=== PATIENT | male | born 1985 | race Caucasian/White ===

== ENCOUNTER 2023-10-07 02:14 | Inpatient (IN) | payer MEDICAID, SELFPAY ==
[2023-10-07] VITALS (13 sets, daily range): BP systolic 122–162; BP diastolic 91–112; PULSE 88–117; RESP 16–96; TEMP 36.3–37.7; O2SAT 95–971; BMI 27.9
--- NOTE | 2023-10-07 02:25 | XR_ITS ---
Examination: Abdomen sonogram, Limited Date and time of exam: October 07, 2023 0256 hrs. Indications: Epigastric pain nausea vomiting onset today Technique: Real-time mccauley scale transabdominal sonographic images of the upper abdomen obtained. Findings: Normal gallbladder Normal common bile duct 0.3 cm Pancreas obscured by bowel gas Liver 16.3 fatty infiltration no focal liver lesions Normal hepatopedal portal venous flow Patent IVC Impression: Normal gallbladder Mild hepatomegaly no focal liver lesions
--- NOTE | 2023-10-07 02:25 | EDRME_ITS ---
Rapid Medical Screening Exam [facility] Arrival date/time: 10/07/23 02:14 37M with history of previous alcohol abuse presents to ED with 1 day of gen ab pain, N/V, and non-bloody diarrhea. Chief Complaint: Nausea/Vomiting/Diarrhea Vital signs: Vital Signs Temperature 98.2 F 10/07/23 02:24 Pulse Rate 113 H 10/07/23 02:24 Respiratory Rate 18 10/07/23 02:24 Blood Pressure 161/91 H 10/07/23 02:24 Pulse Oximetry (%) 98 10/07/23 02:24 Oxygen Delivery Method Room Air 10/07/23 02:24
--- NOTE | 2023-10-07 02:25 | XR_ITS ---
Examination: CT abdomen with intravenous contrast CT pelvis with intravenous contrast 2-D coronal reconstructions 2-D sagittal reconstructions Date and time of exam:October 07, 2023 0421 hours Comparison July 28, 2022 INDICATIONS: Epigastric pain nausea vomiting beginning today. CTDI: vol (mGy) 8.16 DLP: (mGycm) 470 Technique: Multiple axial sections of the abdomen and pelvis have been obtained. 64 slice high-resolution scanner used. 3 mm axial sections have been obtained, post intravenous injection 60 cc [id number] 2-D sagittal, coronal reconstructions obtained. Low dose protocols were performed. One or more of the following dose reduction techniques were used; automated exposure control, adjustment of the mA and/or KV according to patient size, use of iterative reconstruction technique. Findings: Diffuse fatty infiltration throughout the liver Spleen is not enlarged Edema surrounding the pancreas No definite gallstones Moderate bilateral renal parenchymal scar formation Aorta normal size No bowel obstruction Normal appendix No diverticulitis Mild wall thickening urinary bladder Intact osseous structures IMPRESSION: Acute pancreatitis, no pseudocyst
[2023-10-07 02:45] LABS: Lactate (Lactic Acid) 2.1 mMol/L (0.4-2.0)
[2023-10-07 02:53] LABS: Basophils % (Auto) 0 % (0-2.5); Eosinophils # (Auto) 0.1 Thou/mm3 (0.0-0.5); Eosinophils % (Auto) 0 % (0-10); Hematocrit 46.1 % (41.0-53.0); Hemoglobin 16.1 g/dL (13.5-16.0); Immature Granulocytes % (Auto) 0 % (0-0); Immature Granulocytes Auto 0.05 Thou/mm3 (0.00-0.00); Lymphocytes # (Auto) 1.1 Thou/mm3 (1.0-4.8); Lymphocytes % (Auto) 7 % (10-50); Mean Corpuscular HGB Conc 34.9 g/dl (31.0-37.0); Mean Corpuscular Hemoglobin 30.1 pg (25.0-35.0); Mean Corpuscular Volume 86 fL (80-100); Monocytes % (Auto) 6 % (0-12); Neutrophils # (Auto) 14.2 Thou/mm3 (1.8-7.7); Neutrophils % (Auto) 86 % (37-80); Nucleated Red Blood Cell % 0 /100 WBC (0); Platelet Count 228 Thou/mm3 (140-440); RDW Standard Deviation 46.5 fL (35.1-43.9); Red Blood Count 5.34 Miln/mm3 (4.50-5.90); White Blood Count 16.4 Thou/mm3 (3.8-10.6)
[2023-10-07 03:04] LABS: Collection Type, Urine Clean Catch; RBC,Urine 0 /hpf (0-3); Squamous Epithelial Cell,Urine 0 /hpf (0-5); WBC,Urine 0 /hpf (0-5)
[2023-10-07 03:05] LABS: Alanine Aminotransferase 325 U/L (10-49); Albumin, Serum 5.1 gm/dL (3.5-5.0); Albumin/Globulin Ratio 1.5 (1.2-2.2); Alcohol, Blood Medical < 3.0 mg/dL (0-10.0); Alkaline Phosphatase 90 U/L (46-116); Anion Gap 9 (7-16); Aspartate Amino Transferase 201 U/L (0-34); BUN/Creatinine Ratio 17 Ratio (12-20); Bilirubin,Total 2.1 mg/dL (0.3-1.2); Blood Urea Nitrogen 15 mg/dL (9-23); Calcium 10.1 mg/dL (8.3-10.6); Calcium (Corrected) 10.1 mg/dL (8.5-10.1); Carbon Dioxide 30.2 mMol/L (20.0-31.0); Chloride 97 mMol/L (98-107); Creatinine (Component) 0.9 mg/dL (0.6-1.3); Estimated Creatinine Clearance 124.6 mL/min (>60); Globulin 3.3 gm/dL (2.3-3.5); Glucose 141 mg/dL (74-106); Lipase 671 U/L (12-53); Osmolality,Calculated 274 (275-295); Potassium 3.4 mMol/L (3.4-5.1); Sodium 136 mMol/L (136-145); Total Protein 8.4 gm/dL (5.7-8.2); eGFR > 60 See Note
[2023-10-07 03:26] LABS: Bilirubin,Urine Negative (Negative); Blood,Urine Negative (Negative); Clarity,Urine Clear (Clear/Hazy); Glucose, Urine Trace (Negative); Ketones,Urine 2+ (Negative); Leukocyte Esterase,Urine Negative (Negative); Nitrite,Urine Negative (Negative); PH,Urine 6.5 (5.0-7.0); Protein,Urine 2+ (Neg - Trace); Urobilinogen,Urine Negative mg/dL (0.0-1.0)
[2023-10-07 03:27] LABS: Color,Urine Yellow (Lt Yel-Yel)
[2023-10-07 03:32] LABS: Amphetamine/Methamp Scrn,U Negative (Negative); Barbiturate Screen,Urine Negative (Negative); Benzodiazepines Screen,Urine Negative (Negative); Benzoylecgonine Screen, Ur Negative (Negative); Fentanyl Screen,Urine Negative (Negative); Opiate Screen,Urine Negative (Negative); THC Screen,Urine Negative (Negative)
[2023-10-07] MEDS: MORPHINE SULF INJ 4 MG/ML VIAL IVP (03:52)
[2023-10-07] MEDS: RINGERS LACTATED 1000 ML 1,000 ML 999 ML IV (03:53)
--- NOTE | 2023-10-07 04:01 | PRELIM_ITS ---
Gallbladder ultrasound with Limited Doppler. October 07, 2023 0253 hours Clinical history: Right upper quadrant pain, nausea, vomiting.No prior study is available for comparison. Findings:The visualized l iver measures 16.3 cm in length and is heterogeneous in echotexture. No intrahepatic biliary duct dil atation. The main portal vein is patent and demonstrates hepatopetal flow. No gallbladder calculus, w all thickening or pericholecystic fluid is identified. The common duct is normal in caliber at 3 mm. The pancreas is obscured by bowel gas. The inferior vena cava is unremarkable to the extent visualize d.Impression:No evidence of cholelithiasis, wall thickening, pericholecystic fluid or biliary dilatat ion. Heterogeneous echotexture of the liver, suggestive of liver parenchymal disease. Recommend clini pratima correlation. Report Electronically Signed By: SE SAEZ 10/07/2023 3:59:30 AM [EST]
--- NOTE | 2023-10-07 04:59 | EDNOTE_ITS ---
Nausea/Vomit./Diarrhea-RME/HPI General Chief complaint: Nausea/Vomiting/Diarrhea Stated complaint: N/V/D Time Seen by Provider: 10/07/23 04:58 Arrival date/time: 10/07/23 02:14 RME / HPI RME / HPI Narrative: 10/07/23 02:14 37M with history of previous alcohol abuse presents to ED with 1 day of gen ab pain, N/V, and non-bloody diarrhea. ------ Dr. Reyna?s Main ED Evaluation: 37yo male with a history of alcohol abuse presents to the ED for a chief complaint of epigastric pain x 2 days. Patient states he last drank beer 3-4 days ago. He states he developed sudden abdominal pain 2 days ago, reporting it's been progressively getting worse since. He states the pain worsens when he lays flat. He reports associated N/V/D, decreased PO intake, and dysuria. He denies any fever, chills or any other associated symptoms. No known allergies. Patient reports experiencing similar symptoms 2 years ago. Related Data Previous Rx's ?Medication ?Instructions ?Recorded esomeprazole magnesium 20 mg 20 mg PO QDAY #20 caps 02/22/19 capsule,delayed release (Nexium) ondansetron HCl 4 mg tablet 4 mg PO QID PRN nausea and 02/22/19 (Zofran) vomiting #14 tabs ibuprofen 800 mg tablet 800 mg PO Q6H PRN pain #30 tabs 03/11/19 esomeprazole magnesium 20 mg 20 mg PO QDAY #30 caps 07/28/22 capsule,delayed release (Nexium) Allergies Allergy/AdvReac Type Severity Reaction Status Date / Time No Known Allergies Allergy Verified 03/11/19 18:57 Review of Systems Review of Systems Systems Reviewed: All systems reviewed, normal except as documented Narrative Review of Systems: GEN: No fever, no chills, no weight loss, + decreased PO intake EYES: No discharge, no visual changes, no pain HEENT: No ear pain, no congestion, no sore throat PULM: No shortness of breath, no cough, no congestion CV: No chest pain, no dyspnea on exertion, no palpitations GI: + nausea, + vomiting, + diarrhea, + pain, no constipation : No frequency, no urgency and + dysuria MUSC/SKEL No joint pain, no back pain SKIN: No rash PSYCH: No hallucinations, no depression HEME/LYMPH: No easy bleeding or bruising tendencies NEURO: No weakness, no headache Past Medical History Past Medical History CARDIAC: Negative Cardiac Disorders or Congestive Heart Failure RESPIRATORY: Negative Chronic Obstructive Pulmonary Disease (COPD) or Asthma GENITOURINARY: Negative Renal Disease ENDOCRINE: Negative Diabetes Mellitus Type 1 or Diabetes Mellitus Type 2 HEMATOLOGIC: Negative Sickle Cell Disease Family History FAMILY HISTORY: Positive Family Cardiac Disorders; Negative Family Neurologic Problems Social History SMOKING STATUS: Never smoker SECOND HAND EXPOSURE: No SUBSTANCE USE: does not use ED Exam Narrative Physical exam: GENERAL APPEARANCE: Well hydrated, well nourished, in no acute distress. VITALS: All vitals were reviewed and the pulse ox is 97% on room air which is normal according to my interpretation. HEENT: Normocephalic, atraumatic, EOMI, EACs are patent. There is no bulge or retraction. Throat without erythema or exudate. Moist oromucosa. No jaundice NECK: Supple, no JVD or bruits. CARDIOVASCULAR: Heart regular without S3-S4 or murmur. No rubs or gallops. LUNGS/CHEST: Clear to auscultation bilaterally. No rales, rhonchi, or wheezing. Normal inspection. ABDOMEN: Tender to palpation at the epigastric area with minimal tenderness to palpation at the RUQ. No pulsatile masses. No rebound, rigidity, or guarding. No incarcerated hernia. EXTREMITIES: No edema, clubbing, or cyanosis. Intact CSM. Normal inspection and palpation. SKIN: Warm and dry without rashes. Normal inspection and palpation. MUSCULOSKELETAL: No gross deformity, full ROM all extremities. Normal inspection and palpation. NEURO: Alert and oriented x3. Cranial nerves II through XII grossly intact. There are no other motor or sensory deficits noted. PSYCHIATRIC: Normal mood and affect. No psychosis. Course Quality Measures none Orders Category Date Time Status CT Screening NOW Care 10/07/23 02:25 Active Insert IV NOW Care 10/07/23 03:14 Active NPO NOW Care 10/07/23 03:14 Active Diet NPO (NOW) Diet 10/07/23 03:[address] abdomen pelvis w con Stat Exams 10/07/23 02:25 Taken US gall bladder Stat Exams 10/07/23 02:25 Taken Alcohol, Blood Medical Stat Lab 10/07/23 02:40 Completed CBC Stat Lab 10/07/23 02:40 Completed CMP [Comprehensive Metabolic Panel] Stat Lab 10/07/23 02:40 Completed Drug Screen,Urine Stat Lab 10/07/23 02:45 Completed Lactate (Lactic Acid) Stat Lab 10/07/23 02:40 Results Lipase Stat Lab 10/07/23 02:40 Completed Triglycerides Stat Lab 10/07/23 02:40 Completed UA [Urinalysis] Stat Lab 10/07/23 02:45 Completed Morphine Inj* [Morphine Sulf Inj] Med 10/07/23 03:14 Discontinued 4 mg IVP X1 ONE Ondansetron Inj [Zofran Inj] Med 10/07/23 03:14 Discontinued 4 mg IV X1 ONE Ringers Lactated 1000 ml [Lactated Ringers] 1,000 ml Med 10/07/23 03:14 Discontinued IV 999 mls/hr Vital Signs Vital signs: Vital Signs Temperature 98.2 F 10/07/23 02:24 Pulse Rate 113 H 10/07/23 02:24 Respiratory Rate 18 10/07/23 02:24 Blood Pressure 161/91 H 10/07/23 02:24 Pulse Oximetry (%) 98 10/07/23 02:24 Oxygen Delivery Method Room Air 10/07/23 02:24 Nausea/Vomiting/Diarrhea MDM Narrative MDM Narrative:: Scribe Attestation: 10/07/23 - Kateryna Blum am scribing for and in the presence of Dr. Reyna WBC count is 16,000. CMP showing elevated liver enzymes. But has been elevated before 2. Lipase level is 671. But he is quite tender in the epigastrium. Lactic acid of 2.1. UA is dry. Toxicology lab is negative. Alcohol level is negative. CT abdomen and pelvic as well as ultrasound of the gallbladder shows evidence of pancreatitis with no cholelithiasis and common bile duct is normal at 3 mm. No free fluid and no free air. Appendix is within normal limit. On exam the patient is quite tender to palpate over the epigastrium. Especially on supine. 5:15 AM, I spoke to and discussed with Dr. Van, the surgeon on-call. He said there is nothing much for him to do. And we do not need any consult from him. He Said. He Thinks That the Main Treatment Required IV Fluid and IV Painkiller. 5:30 AM, I spoke to and discussed with Dr. salas, the hospitalist on-call. He is evaluating the patient for admission. Patient data External records reviewed:: [facility] previous records Clinical information provided by:: patient Social determinants that could affect healthcare access:: none Patient has the following chronic illnesses:: none How is presenting disease/condition affected by chronic disease/condition?: no chronic disease Evaluation data The following diagnostics were reviewed and interpreted by me:: lab results and radiology exam(s) Lab and/or radiology exams considered but not ordered:: none Interpretation Summary: Teler[facility] Preliminary Report Draft Patient: MERLE LEO. Record#: [id number] Birthdate: 1985 Age/Sex: 37 / M Location: [facility] Attending Dr: Ordering Physician: Date of Service: Procedure(s): Accession Number(s): cc: ~ Gallbladder ultrasound with Limited Doppler. October 07, 2023 0253 hours Clinical history: Right upper quadrant pain, nausea, vomiting. No prior study is available for comparison. Findings: The visualized liver measures 16.3 cm in length and is heterogeneous in echotexture. No intrahepatic biliary duct dilatation. The main portal vein is patent and demonstrates hepatopetal flow. No gallbladder calculus, wall thickening or pericholecystic fluid is identified. The common duct is normal in caliber at 3 mm. The pancreas is obscured by bowel gas. The inferior vena cava is unremarkable to the extent visualized. Impression: No evidence of cholelithiasis, wall thickening, pericholecystic fluid or biliary dilatation. Heterogeneous echotexture of the liver, suggestive of liver parenchymal disease. Recommend clinical correlation. Report Electronically Signed By: SE SAEZ 10/07/2023 3:59:30 AM [EST] Telerad Preliminary Report Draft Patient: MERLE LEO. Record#: [id number] Birthdate: 1985 Age/Sex: 37 / M Location: [facility] Attending Dr: Ordering Physician: Date of Service: Procedure(s): Accession Number(s): cc: ~ CT scan of the abdomen and pelvis with intravenous contrast (axial sections with sagittal and coronal reformats) October 07, 2023 at 0403 hours Clinical History: Generalized abdominal pain, nausea and vomiting, diarrhea. Comparison: Correlated with the prior ultrasound study performed earlier today at 0253 hours. Findings: The lung bases are clear. The gallbladder, spleen, kidneys and adrenals are unremarkable. Peripancreatic fat stranding. No pancreatic duct dilation. No collections. Liver steatosis. No evidence of bowel obstruction. The appendix is within normal limits. There is no mesenteric or retroperitoneal adenopathy. The urinary bladder is unremarkable. There is no free air. Small amount of free fluid in the peritoneal cavity. The osseous structures are unremarkable. Impression: Acute pancreatitis. Liver steatosis. Report Electronically Signed By: 10/07/2023 4:58:16 AM [EST] Medications / Prescriptions Medications / Prescriptions considered but not ordered:: none Medication administrations:: Medication Administration History Discontinued Medications Lactated Ringer's (Lactated Ringers) 1,000 mls @ 999 mls/hr IV .Q1H1M ONE Stop: 10/07/23 04:14 Last Infusion: 10/07/23 04:45 Dose: Infused Documented By: Admin: 10/07/23 03:53 Dose: 999 mls/hr Documented By: GABRIEL Morphine Sulfate (Morphine Sulf Inj 4 Mg/Ml Vial) 4 mg IVP X1 ONE Stop: 10/07/23 03:15 Last Admin: 10/07/23 03:52 Dose: 4 mg Documented By: GABRIEL Ondansetron HCl (Ondansetron Inj 2 Mg/Ml Vial 2 Ml) 4 mg IV X1 ONE; Protocol Stop: 10/07/23 03:15 Last Admin: 10/07/23 03:52 Dose: 4 mg Documented By: GABRIEL As above Consultations Consultation(s) initiated? (list below): Yes Diagnosis Nausea Differential Diagnosis: gastroenteritis and other (Pancreatitis. Gastritis cholelithiasis) Most likely diagnosis given after review of the tests above:: Acute pancreatitis Admission Indicated Admission indicated?: indicated Admission Request Was there a request for admission?: Yes Admission Attestation Admission request attestation: See [facility] Disposition Plan Disposition Plan: Admit Discharge Plan Plan Patient Disposition: Admit Acute Care w/in Hospital Disposition Comment: Stable for admit Prescriptions/Referrals Prescriptions/Med Rec: No Action esomeprazole magnesium [Nexium] 20 mg capsule,delayed release(DR/EC) 20 mg PO QDAY Qty: 20 0RF ondansetron HCl [Zofran] 4 mg tablet 4 mg PO QID PRN (Reason: nausea and vomiting) Qty: 14 0RF ibuprofen 800 mg tablet 800 mg PO Q6H PRN (Reason: pain) Qty: 30 0RF esomeprazole magnesium [Nexium] 20 mg capsule,delayed release(DR/EC) 20 mg PO QDAY Qty: 30 0RF Problem List Clinical Impression: Acute pancreatitis Patient/Caregiver Discharge Instructions Print Language: Amharic Stand Alone Forms: Patient Portal Info Letter
--- NOTE | 2023-10-07 04:59 | PRELIM_ITS ---
CT scan of the abdomen and pelvis with intravenous contrast (axial sections with sagittal and coronal reformats) October 07, 2023 at 0403 hoursClinical History: Generalized abdominal pain, nausea and vomi ting, diarrhea.Comparison: Correlated with the prior ultrasound study performed earlier today at 0253 hours.Findings:The lung bases are clear.The gallbladder, spleen, kidneys and adrenals are unremarkab le.Peripancreatic fat stranding. No pancreatic duct dilation.No collections.Liver steatosis.No eviden ce of bowel obstruction. The appendix is within normal limits.There is no mesenteric or retroperitone al adenopathy.The urinary bladder is unremarkable. There is no free air.Small amount of free fluid in the peritoneal cavity.The osseous structures are unremarkable.Impression:Acute pancreatitis.Liver st eatosis. Report Electronically Signed By: 10/07/2023 4:58:16 AM [EST]
[2023-10-07 05:16] LABS: Triglycerides 118 mg/dL (30-150)
[2023-10-07 05:44] LABS: Reflex Lactate? Y
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
[2023-10-07 06:04] LABS: Lactic Acid, 3 HR 1.4 mMol/L (0.4-2.0)
[2023-10-07] MEDS: MULTIVITAMIN INJ 10 ML in SODIUM CHLORIDE 0.9% 1000 ML 1,000 ML 125 ML IV (06:07)
[2023-10-07] MEDS: MORPHINE SULF INJ 4 MG/ML VIAL 1 MG IVP (06:08)
[2023-10-07] MEDS: LORazepam 0.5 MG TABLET PO (06:08)
[2023-10-07] MEDS: HEPARIN SOD INJ 5000 UNIT/ML VIAL SC ×3 (06:15→21:09)
[2023-10-07 06:31] LABS: Glucose Estimated Average 114 mg/dL (80-131); Hemoglobin A1C 5.6 % Hgb (4.8-6.0)
--- NOTE | 2023-10-07 06:37 | PC.NURSE ---
Pt endorsing his last drink was 2-3 days ago. CIWA score 5, meds given. Pt placed on cardiology nurse practitioner, bed locked in lowest position, o2 and suction readily available, call light within reach. Pt currently A&O x4, GCS 15, speaking clearly and coherently and overall displaying no signs of distress.
[2023-10-07 06:55] LABS: Bilirubin,Direct 0.8 mg/dL (0.0-0.3); Cardiac Risk Estimate 2.9 RATIO (4.0-6.7); Cholesterol 212 mg/dL (132-200); HDL Cholesterol 73 mg/dL (40-60); LDL Cholesterol,Calculated 117 mg/dL (0-130); Procalcitonin 0.14 ng/ml (0.0-0.49); Triglycerides 112 mg/dL (30-150)
[2023-10-07 07:01] LABS: Magnesium 0.9 mg/dL (1.6-2.6)
[2023-10-07] MEDS: PIPER/TAZO 3.375 GM 3.375 GM/50 ML BAG IV (07:14)
[2023-10-07 07:23] LABS: Hepatitis A Antibody IgM Non Reactive (Non React); Hepatitis B Core Antibody IgM Non Reactive (Non React); Hepatitis B Surface Antigen Non Reactive (Non React); Hepatitis C Antibody Non Reactive (Non React)
[2023-10-07] MEDS: Magnesium Sulfate 4 GM Ivpb 4 GM/50 ML BAG IV ×2 (08:10→16:33)
[2023-10-07] MEDS: PANTOPRAZOLE INJ 40 MG VIAL IVP (09:05)
[2023-10-07] MEDS: RINGERS LACTATED 1000 ML 1,000 ML 125 ML IV (09:08)
[2023-10-07] MEDS: MORPHINE SULF INJ 4 MG/ML VIAL 2 MG IVP ×5 (10:45→21:00)
--- NOTE | 2023-10-07 10:51 | EVENTNT_ITS ---
Documentation for date of: 10/07/23 Event Note Event Note: 37-year-old male with past medical history of alcohol use disorder (states he has been sober for the last 5 years except for occasional social drinking over the last year 1 year), history of alcohol induced pancreatitis presented to the ED with chief complaint of severe epigastric abdominal pain associated with nausea vomiting and diarrhea after having several beers yesterday and several the day before. Workup in the ER showed transaminitis and lipase of [address] abdomen and pelvis positive for acute pancreatitis likely secondary to alcohol ingestion and was admitted for further management. Today, patient seen at bedside in the ER. Does not appear to be in excessive amounts of pain, still unable to tolerate p.o. intake and reports persistent nausea but no vomiting. Has not had any bowel movements today and reports that he has not passed any gas since last night. Abdomen does appear a bit distended and mildly tense. Otherwise, no acute complaints. CIWA score 0 at the time my exam. General: No acute distress, well developed, well nourished HEENT: normocephalic, atraumatic, EOMI, PERRLA. Oral mucosa is pink and moist with normal dentition. pharynx is normal in appearance without tonsillar swelling or exudates. No adenopathy Resp: chest wall is symmetric and without deformity. No signs of trauma. Chest wall is non-tender. Lung sounds CTA bilaterally without rales, ronchi, or wheezes. CVS: S1S2 present, mild tachycardia GI: Tense but without guarding or rigidity. Tender to palpation in all 4 quadrants. Bowel sounds present and normoactive Ext: atraumatic in appearance without tenderness or deformity. No swelling or erythema. Capillary refill is less than 3 seconds in all extremities. Pulses palpable. Neuro: AAOx3 with normal speech. Muscle strength 5/5 bilateral upper and lower extremities. Sensation intact bilaterally. Reflexes 2+ bilaterally. Skin: warm, dry and intact without rashes or lesions. Nailbeds pink with no cyanosis or clubbing. #Acute pancreatitis with lipase [address] findings consistent with diagnosis: Likely alcohol induced -Lipid panel within normal limits, electrolytes within normal limits ? Patient still unable to tolerate p.o. intake, continue with IV fluids with LR at 150 cc/h ? Pain management ? Resume diet and advance as tolerated ? Zosyn started in the ED, will discontinue at this time as does not appear to be actively infected. If patient spikes fevers can reinitiate antibiotics and consider CT scan abdomen pelvis ? Blood cultures pending #History of alcohol use disorder ? Acute alcohol use of several beers a day prior to admission. Likely trigger for acute pancreatitis ? CIWA protocol ? Patient appears stable at this time with CIWA of 0 ? Will continue medications for now, monitor for signs of withdrawal Plan of care discussed with attending physician, Dr Star Chen, PGY-3 Attending's attestation: I reviewed labs, imaging, EKG, home medications and prior available records. Face to face evaluation was performed by me. I have personally examined the patient and discussed assessment and plan with the IM team. I reviewed the resident note and agree with the plan with exceptions as below. Acute pancreatitis: Alcohol induced. Continue IV hydration. Manage pain and nausea/vomiting as needed. Started clear liquid diet. Advance as tolerated. Alcohol abuse: Counseled the patient regarding the importance of stopping al cohol completely. Started the patient on CIWA protocol. Continue thiamine and folic acid. Hypomagnesemia: In the setting of vomiting and alcoholism. Replete electrolytes as needed and follow-up levels.
[2023-10-07] MEDS: RINGERS LACTATED 1000 ML 1,000 ML 150 ML IV ×2 (13:07→16:38)
--- NOTE | 2023-10-07 14:36 | PC.NURSE ---
REPORT GIVEN TO KUNAL ON MED/TELE FLOOR. PT TO GO TO ROOM 377
--- NOTE | 2023-10-07 16:09 | PC.CC ---
Pt Gaurav Anthony is a 37 yr old male admitted to hospital services for pancreatitis 2/2 to ETOH. SYS DIR CC Met with pt at bedside to complete initial assessment. At time of encounter pt is noted to be alert and oriented to person, place and situation. Pt speaks in clear even tone and made direct eye contact for duration of encounter. Pt able to confirm all demographic information is up to date. Pt reports coming from home, where he lives with his life partner Tejal Joy and couples children. Pt identifies Ms. Joy as his surrogate DM. In the home pt reports he is independent with ambulation and ADLS. Pt does not use any DME/no O2. Pt reports he is not diabetic and not on dialysis. 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 Pt has not primary care provider at this time. At time of D/c pt will return home with life partner providing transport. Advance Directive not discussed at this time. Pt provided with community resource guide with all services listed being discussed.
[2023-10-07] MEDS: ACETAMINOPHEN 325 MG TABLET 650 MG PO (19:42)
[2023-10-08] VITALS (11 sets, daily range): BP systolic 127–135; BP diastolic 82–96; PULSE 85–100; RESP 16–97; TEMP 36.2–36.9; O2SAT 92–98
[2023-10-08] MEDS: RINGERS LACTATED 1000 ML 1,000 ML 150 ML IV ×4 (00:02→22:46)
[2023-10-08] MEDS: MORPHINE SULF INJ 4 MG/ML VIAL 2 MG IVP ×8 (04:28→22:46)
[2023-10-08] MEDS: HEPARIN SOD INJ 5000 UNIT/ML VIAL SC ×3 (05:19→21:20)
[2023-10-08 05:32] LABS: Basophils % (Auto) 0 % (0-2.5); Eosinophils # (Auto) 0.2 Thou/mm3 (0.0-0.5); Eosinophils % (Auto) 1 % (0-10); Hematocrit 37.8 % (41.0-53.0); Immature Granulocytes % (Auto) 1 % (0-0); Immature Granulocytes Auto 0.08 Thou/mm3 (0.00-0.00); Lymphocytes % (Auto) 6 % (10-50); Mean Corpuscular HGB Conc 34.4 g/dl (31.0-37.0); Mean Corpuscular Hemoglobin 30.4 pg (25.0-35.0); Mean Corpuscular Volume 88 fL (80-100); Monocytes # (Auto) 0.9 Thou/mm3 (0.0-0.8); Monocytes % (Auto) 6 % (0-12); Neutrophils # (Auto) 14.3 Thou/mm3 (1.8-7.7); Neutrophils % (Auto) 87 % (37-80); Nucleated Red Blood Cell % 0 /100 WBC (0); Platelet Count 153 Thou/mm3 (140-440); RDW Standard Deviation 47.3 fL (35.1-43.9); Red Blood Count 4.28 Miln/mm3 (4.50-5.90); White Blood Count 16.4 Thou/mm3 (3.8-10.6)
[2023-10-08 05:47] LABS: INR 1.1 (0.9-1.3); Partial Thromboplastin Time 27.5 Seconds (22.0-36.0); Prothrombin Time 11.7 Seconds (9.0-12.2)
[2023-10-08 06:18] LABS: Alanine Aminotransferase 174 U/L (10-49); Albumin, Serum 4.1 gm/dL (3.5-5.0); Albumin/Globulin Ratio 1.6 (1.2-2.2); Alkaline Phosphatase 66 U/L (46-116); Anion Gap 5 (7-16); Aspartate Amino Transferase 102 U/L (0-34); BUN/Creatinine Ratio 11 Ratio (12-20); Bilirubin,Total 2.6 mg/dL (0.3-1.2); Blood Urea Nitrogen 8 mg/dL (9-23); Calcium 8.5 mg/dL (8.3-10.6); Calcium (Corrected) 8.5 mg/dL (8.5-10.1); Carbon Dioxide 28.3 mMol/L (20.0-31.0); Chloride 97 mMol/L (98-107); Creatinine (Component) 0.7 mg/dL (0.6-1.3); Estimated Creatinine Clearance 160.2 mL/min (>60); Globulin 2.6 gm/dL (2.3-3.5); Glucose 97 mg/dL (74-106); Magnesium 2.1 mg/dL (1.6-2.6); Osmolality,Calculated 259 (275-295); Potassium 3.5 mMol/L (3.4-5.1); Sodium 130 mMol/L (136-145); Total Protein 6.7 gm/dL (5.7-8.2); eGFR > 60 See Note
[2023-10-08] MEDS: LORazepam 0.5 MG TABLET PO (08:03)
[2023-10-08] MEDS: ACETAMINOPHEN 325 MG TABLET 650 MG PO ×2 (08:03→18:54)
[2023-10-08] MEDS: PANTOPRAZOLE INJ 40 MG VIAL IVP (08:05)
--- NOTE | 2023-10-08 10:24 | PD.RESPRO ---
Documentation for date of: 10/08/23 Subjective Subjective Interval history: Patient seen and examined at bedside this morning. No acute overnight events. Patient states his abdominal pain has improved while at rest however can be 10/10 when using the bathroom or getting up to walk. He also complains of dysuria, therefore UA was ordered. Patient is tolerating clear liquid diet, which will exacerbate abdominal pain. We discussed patient going extremely slowly when eating/drinking. Denies any nausea/vomiting. Has not had a bowel movement since 10/05 evening. Patient endorses shallow breathing as deep breaths cause significant abdominal pain. Will order incentive spirometer and encourage patient to utilize. CIWA score at bedside 2?3 at this time, with headache and diaphoresis, however patient states he feels his BP increase when he has abdominal pain, and increased BP causes headache. Will continue to monitor for other signs/symptoms of alcohol withdrawal. Labs reviewed, leukocytosis stable. Hemoglobin decreased however no signs of bleed, likely secondary to IV fluid resuscitation. Sodium decreased, possibly dilutional in the setting of IV fluids, will continue to monitor. LFTs downtrending, T. bili with mild increase. Exam Vital Signs Temp Pulse Resp BP Pulse Ox O2 Del Method 98.5 F 98 19 133/88 H 96 Room Air 10/08/23 07:57 10/08/23 08:29 10/08/23 08:29 10/08/23 07:57 10/08/23 07:57 10/08/23 07:57 Narrative Exam Gen: AAOx3, moderate distress from abd pain HEENT: NCAT, PERRLA, EOMI, MMM, no LAD CVS: normal S1, S2. RRR. No MRG Resp: CTA B/L. Diminished breath sounds at bases Abd: TTP diffusely w/o rebound tenderness, abd distended/tense, non-distended. BS+ in all 4 quadrants MSK: Good ROM in BUE & BLE. No edema or rash. Neuro: CN II-XII grossly intact. No focal deficits noted Objective Labs 10/08/23 05:00 10/08/23 05:00 Labs: Laboratory Results - last 24 hr 10/08/23 05:00 WBC 16.4 H RBC 4.28 L Hgb 13.0 L D Hct 37.8 L MCV 88 MCH 30.4 MCHC 34.4 RDW Std Deviation 47.3 H Plt Count 153 D Neut % (Auto) 87 H Lymph % (Auto) 6 L [place] % (Auto) 6 Eos % (Auto) 1 Baso % (Auto) 0 Neut # (Auto) 14.3 H Lymph # (Auto) 1.0 [place] # (Auto) 0.9 H Eos # (Auto) 0.2 Baso # (Auto) 0.0 Immature Gran # (Auto) 0.08 H Absolute Nucleated RBC 0.00 Immature Gran % 1 H Nucleated RBC % 0 PT 11.7 INR 1.1 APTT 27.5 Sodium 130 L Potassium 3.5 Chloride 97 L Carbon Dioxide 28.3 Anion Gap 5 L BUN 8 L Creatinine 0.7 Estim Creat Clear Calc 160.2 eGFR > 60 BUN/Creatinine Ratio 11 L Glucose 97 Calculated Osmolality 259 L Calcium 8.5 D Corrected Calcium 8.5 D Phosphorus 2.0 L Magnesium 2.1 Total Bilirubin 2.6 H D AST 102 H ALT 174 H Alkaline Phosphatase 66 D Total Protein 6.7 Albumin 4.1 D Globulin 2.6 Albumin/Globulin Ratio 1.6 Quality Measures Quality Measures VTE prophylaxis (Heparin SubQ) Assessment & Plan Assessment Current Active Medications: Generic Name Dose Route Start Last Admin Trade Name Freq PRN Reason Stop Dose Admin Acetaminophen 650 mg 10/07/23 05:39 Acetaminophen 325 Mg Tablet PO 11/06/23 05:38 Q6H PRN Fever >101.5 Acetaminophen 650 mg 10/07/23 05:39 10/08/23 08:03 Acetaminophen 325 Mg Tablet PO 11/06/23 05:38 650 mg Q6H PRN Administration PAIN SCALE 1-3 (mild Heparin Sodium (Porcine) 5,000 unit 10/07/23 06:00 10/08/23 05:19 Heparin Sod Inj 5000 Unit/Ml Vial SC 10/21/23 05:59 5,000 unit Q8HR GUZMAN Administration Lactated Ringer's 1,000 mls @ 150 mls/hr 10/07/23 10:50 10/08/23 06:54 Lactated Ringers IV 11/06/23 10:49 150 mls/hr .Q6H40M GUZMAN Administration Lorazepam 0.5 mg 10/07/23 05:50 10/08/23 08:03 Lorazepam 0.5 Mg Tablet PO 10/12/23 05:49 0.5 mg Q4HR PRN Administration CIWA Score 2-6 Lorazepam 1 mg 10/07/23 05:50 Lorazepam 0.5 Mg Tablet PO 10/12/23 05:49 Q4HR PRN CIWA SCORE 7-11 Lorazepam 2 mg 10/07/23 05:50 Lorazepam 0.5 Mg Tablet PO 10/12/23 05:49 Q4HR PRN CIWA SCORE 12-15 Morphine Sulfate 2 mg 10/07/23 08:22 10/08/23 06:58 Morphine Sulf Inj 4 Mg/Ml Vial IVP 10/12/23 05:38 2 mg Q2H PRN Administration PAIN SCALE 7-10 (Severe Ondansetron HCl 4 mg 10/07/23 05:39 10/08/23 08:03 Ondansetron Inj 2 Mg/Ml Vial 2 Ml IV 11/06/23 05:38 4 mg Q6H PRN Administration NAUSEA OR VOMITING Protocol Pantoprazole Sodium 40 mg 10/07/23 09:00 10/08/23 08:05 Pantoprazole Inj 40 Mg Vial IVP 11/06/23 08:59 40 mg QDAY GUZMAN Administration Plan Patient is a 37-year-old male with history of alcohol use disorder, history of alcohol induced pancreatitis who was admitted for acute pancreatitis secondary to alcohol ingestion after presenting to the ED with severe epigastric abdominal pain associated with N/V/D. Labs revealed transaminitis and lipase of 671. CT A/P positive for acute pancreatitis. #Acute pancreatitis, likely secondary to alcohol Patient met 3/3 diagnostic criteria: Epigastric abdominal pain; lipase 671; CT A/P findings consistent with acute pancreatitis Patient on LR at 150 cc/h; morphine and acetaminophen for pain control Patient started on clear liquid diet, with improved tolerance and abdominal pain Will continue to monitor urine output as abdomen is distended, therefore concern for patient developinig abdominal compartment syndrome Blood cultures negative at 24 hours #Chronic alcohol use #Concern for alcohol withdrawal #Transaminitis #Hyperbilirubinemia Patient endorses history of alcohol use in the past and started drinking again over the past year LFTs are downtrending; T. bili with mildly increased from 2.1 => 2.6 CIWA 2-3: headache; diaphoresis CIWA protocol in place; CTM for signs/symptoms of alcohol withdrawal #Dysuria UA ordered, will follow up #Concern for atelectasis Patient endorses shallow breaths due to increased abdominal pain; diminished breath sounds at bases on physical exam Incentive spirometry ordered and patient encouraged to use to prevent atelectasis #Hyperlipidemia Triglycerides 112, total cholesterol 212, LDL 117, HDL 73 Holding off on atorvastatin at this time due to transaminitis Dispo: [facility]management of acute pancreatitis and concern for alcohol withdrawal GI PPx: Protonix DVT PPx: SCDs, heparin Diet: Clear liquid diet, advance as tolerated CODE STATUS: Full code Patient seen and care discussed with my attending Dr. Graves. Annita Escalera MD PGY-2 Attending Provider Attestation/Addendum I reviewed labs, imaging, EKG, home medications and prior available records. Face to face evaluation was performed by me. I have personally examined the patient and discussed assessment and plan with the IM team. I reviewed the resident note and agree with the plan with exceptions as below. Acute pancreatitis: Alcohol induced. Continue IV hydration. Manage pain and nausea/vomiting as needed. Started clear liquid diet. Advance as tolerated. Alcohol abuse: Counseled the patient regarding the importance of stopping alcohol completely. Started the patient on CIWA protocol. Continue thiamine and folic acid. Dysuria: Initial UA showed no UTI picture however will send repeat UA. Might be in the setting of abdominal distention from acute pancreatitis. Hypomagnesemia: Resolved. In the setting of vomiting and alcoholism. Continue to replete electrolytes as needed and follow-up levels.
[2023-10-08 15:17] LABS: Collection Type, Urine Clean Catch; Squamous Epithelial Cell,Urine 0 /hpf (0-5); WBC,Urine 0 /hpf (0-5)
[2023-10-08 15:22] LABS: Bilirubin,Urine Negative (Negative); Blood,Urine Negative (Negative); Clarity,Urine Clear (Clear/Hazy); Color,Urine Lt-Yellow (Lt Yel-Yel); Glucose, Urine Negative (Negative); Ketones,Urine 1+ (Negative); Leukocyte Esterase,Urine Negative (Negative); Nitrite,Urine Negative (Negative); PH,Urine 7.5 (5.0-7.0); Protein,Urine Negative (Neg - Trace); RBC,Urine < 1 /hpf (0-3); Specific Gravity,Urine 1.008 (1.001-1.035); Urobilinogen,Urine Negative mg/dL (0.0-1.0)
[2023-10-08] MEDS: SENNA TABLET 1 TAB PO (21:20)
[2023-10-08] MEDS: POLYETHYLENE GLYCOL 17 GM PACKET PO (21:20)
[2023-10-09] VITALS (9 sets, daily range): BP systolic 129–141; BP diastolic 81–95; PULSE 85–102; RESP 17–98; TEMP 36.3–37.1; O2SAT 93–95; BMI 27.9
[2023-10-09] MEDS: MORPHINE SULF INJ 4 MG/ML VIAL 2 MG IVP ×8 (01:59→23:49)
[2023-10-09] MEDS: LORazepam 0.5 MG TABLET PO ×4 (02:02→23:53)
[2023-10-09] MEDS: HEPARIN SOD INJ 5000 UNIT/ML VIAL SC ×3 (05:00→21:03)
[2023-10-09] MEDS: RINGERS LACTATED 1000 ML 1,000 ML 150 ML IV ×2 (05:56→13:19)
[2023-10-09 06:18] LABS: Basophils % (Auto) 0 % (0-2.5); Eosinophils # (Auto) 0.2 Thou/mm3 (0.0-0.5); Eosinophils % (Auto) 2 % (0-10); Hematocrit 35.2 % (41.0-53.0); Hemoglobin 12.2 g/dL (13.5-16.0); Immature Granulocytes % (Auto) 0 % (0-0); Immature Granulocytes Auto 0.05 Thou/mm3 (0.00-0.00); Lymphocytes # (Auto) 0.9 Thou/mm3 (1.0-4.8); Lymphocytes % (Auto) 6 % (10-50); Mean Corpuscular HGB Conc 34.7 g/dl (31.0-37.0); Mean Corpuscular Hemoglobin 30.3 pg (25.0-35.0); Mean Corpuscular Volume 87 fL (80-100); Monocytes # (Auto) 0.8 Thou/mm3 (0.0-0.8); Monocytes % (Auto) 6 % (0-12); Neutrophils # (Auto) 11.4 Thou/mm3 (1.8-7.7); Neutrophils % (Auto) 86 % (37-80); Nucleated Red Blood Cell % 0 /100 WBC (0); Platelet Count 160 Thou/mm3 (140-440); Red Blood Count 4.03 Miln/mm3 (4.50-5.90); White Blood Count 13.3 Thou/mm3 (3.8-10.6)
[2023-10-09 06:58] LABS: Alanine Aminotransferase 131 U/L (10-49); Albumin/Globulin Ratio 1.5 (1.2-2.2); Alkaline Phosphatase 74 U/L (46-116); Anion Gap 3 (7-16); Aspartate Amino Transferase 91 U/L (0-34); BUN/Creatinine Ratio 10 Ratio (12-20); Bilirubin,Total 2.1 mg/dL (0.3-1.2); Blood Urea Nitrogen 6 mg/dL (9-23); Calcium 8.6 mg/dL (8.3-10.6); Calcium (Corrected) 8.6 mg/dL (8.5-10.1); Carbon Dioxide 26.6 mMol/L (20.0-31.0); Chloride 99 mMol/L (98-107); Creatinine (Component) 0.6 mg/dL (0.6-1.3); Globulin 2.6 gm/dL (2.3-3.5); Glucose 86 mg/dL (74-106); Magnesium 2.1 mg/dL (1.6-2.6); Osmolality,Calculated 255 (275-295); Phosphorous 1.1 mg/dL (2.4-5.1); Potassium 3.6 mMol/L (3.4-5.1); Sodium 129 mMol/L (136-145); Total Protein 6.6 gm/dL (5.7-8.2); eGFR > 60 See Note
[2023-10-09] MEDS: PANTOPRAZOLE INJ 40 MG VIAL IVP (08:05)
--- NOTE | 2023-10-09 08:10 | ESPR_ITS ---
Documentation for date of: 10/09/23 Subjective Subjective Interval history: Patient seen and examined at bedside this morning. Overnight patient requested laxatives for constipation and received MiraLAX, senna however was unable to have a bowel movement. Patient did pass gas and endorses improvement of abdominal distention. He is tolerating clear liquid diet, will advance to full liquid diet. Patient encouraged to ambulate as well, which will help with bowel movement. Patient also complained of difficulty sleeping, will try melatonin tonight. Labs reviewed, mild improvement in WBC. Phosphorus low will replete. LFTs, T. bili downtrending. Exam Vital Signs Temp Pulse Resp BP Pulse Ox O2 Del Method 98.2 F 92 18 138/94 H 94 L Room Air 10/09/23 04:00 10/09/23 07:43 10/09/23 07:07 10/09/23 04:00 10/09/23 04:00 10/09/23 04:00 Narrative Exam Gen: AAOx3, mild distress from abd pain HEENT: NCAT, PERRLA, EOMI, MMM, no LAD CVS: normal S1, S2. RRR. No MRG Resp: CTA B/L. Diminished breath sounds at bases Abd: TTP has improved, no rebound tenderness, abdominal distention has improved, non-distended. BS+ hypoactive MSK: Good ROM in BUE & BLE. No edema or rash. Neuro: CN II-XII grossly intact. No focal deficits noted Objective Labs 10/09/23 05:17 10/09/23 05:17 Labs: Laboratory Results - last 24 hr 10/08/23 10/09/23 15:00 05:17 WBC 13.3 H RBC 4.03 L Hgb 12.2 L Hct 35.2 L MCV 87 MCH 30.3 MCHC 34.7 RDW Std Deviation 47.0 H Plt Count 160 Neut % (Auto) 86 H Lymph % (Auto) 6 L [place] % (Auto) 6 Eos % (Auto) 2 Baso % (Auto) 0 Neut # (Auto) 11.4 H Lymph # (Auto) 0.9 L [place] # (Auto) 0.8 Eos # (Auto) 0.2 Baso # (Auto) 0.0 Immature Gran # (Auto) 0.05 H Absolute Nucleated RBC 0.00 Immature Gran % 0 Nucleated RBC % 0 Sodium 129 L Potassium 3.6 Chloride 99 Carbon Dioxide 26.6 Anion Gap 3 L BUN 6 L Creatinine 0.6 Estim Creat Clear Calc 187.0 eGFR > 60 BUN/Creatinine Ratio 10 L Glucose 86 Calculated Osmolality 255 L Calcium 8.6 Corrected Calcium 8.6 Phosphorus 1.1 L Magnesium 2.1 Total Bilirubin 2.1 H D AST 91 H ALT 131 H Alkaline Phosphatase 74 Total Protein 6.6 Albumin 4.0 Globulin 2.6 Albumin/Globulin Ratio 1.5 Ur Collection Type Clean Catch Urine Color Lt-Yellow Urine Clarity Clear Urine pH 7.5 H Ur Specific [place] 1.008 Urine Protein Negative Urine Glucose (UA) Negative Urine Ketones 1+ A Urine Blood Negative Urine Nitrite Negative Urine Bilirubin Negative Urine Urobilinogen (Auto) Negative Ur Leukocyte Esterase Negative Urine RBC < 1 Urine WBC 0 Ur Squamous Epith Cells 0 Urine Bacteria None Quality Measures Quality Measures VTE prophylaxis (Heparin SubQ) Assessment & Plan Assessment Current Active Medications: Generic Name Dose Route Start Last Admin Trade Name Freq PRN Reason Stop Dose Admin Acetaminophen 650 mg 10/07/23 05:39 Acetaminophen 325 Mg Tablet PO 11/06/23 05:38 Q6H PRN Fever >101.5 Acetaminophen 650 mg 10/07/23 05:39 10/08/23 18:54 Acetaminophen 325 Mg Tablet PO 11/06/23 05:38 650 mg Q6H PRN Administration PAIN SCALE 1-3 (mild Heparin Sodium (Porcine) 5,000 unit 10/07/23 06:00 10/09/23 05:00 Heparin Sod Inj 5000 Unit/Ml Vial SC 10/21/23 05:59 5,000 unit Q8HR GUZMAN Administration Lactated Ringer's 1,000 mls @ 150 mls/hr 10/07/23 10:50 10/09/23 05:56 Lactated Ringers IV 11/06/23 10:49 150 mls/hr .Q6H40M GUZMAN Administration Lorazepam 0.5 mg 10/07/23 05:50 10/09/23 08:01 Lorazepam 0.5 Mg Tablet PO 10/12/23 05:49 0.5 mg Q4HR PRN Administration CIWA Score 2-6 Lorazepam 1 mg 10/07/23 05:50 Lorazepam 0.5 Mg Tablet PO 10/12/23 05:49 Q4HR PRN CIWA SCORE 7-11 Lorazepam 2 mg 10/07/23 05:50 Lorazepam 0.5 Mg Tablet PO 10/12/23 05:49 Q4HR PRN CIWA SCORE 12-15 Morphine Sulfate 2 mg 10/07/23 08:22 10/09/23 08:04 Morphine Sulf Inj 4 Mg/Ml Vial IVP 10/12/23 05:38 2 mg Q2H PRN Administration PAIN SCALE 7-10 (Severe Ondansetron HCl 4 mg 10/07/23 05:39 10/09/23 08:04 Ondansetron Inj 2 Mg/Ml Vial 2 Ml IV 11/06/23 05:38 4 mg Q6H PRN Administration NAUSEA OR VOMITING Protocol Pantoprazole Sodium 40 mg 10/07/23 09:00 10/09/23 08:05 Pantoprazole Inj 40 Mg Vial IVP 11/06/23 08:59 40 mg QDAY GUZMAN Administration Potassium Phos/Sodium Phos 1 packet 10/09/23 09:00 [facility] 1 Packet (1.5 Gm) PO 10/10/23 08:59 BID GUZMAN Sennosides 1 tab 10/08/23 19:41 10/08/23 21:20 Senna Tablet PO 11/07/23 19:40 1 tab QDAY PRN Administration CONSTIPATION Protocol Plan Patient is a 37-year-old male with history of alcohol use disorder, history of alcohol induced pancreatitis who was admitted for acute pancreatitis secondary to alcohol ingestion after presenting to the ED with severe epigastric abdominal pain associated with N/V/D. Labs revealed transaminitis and lipase of 671. CT A/P positive for acute pancreatitis. #Acute pancreatitis, likely secondary to alcohol Patient met 3/3 diagnostic criteria: Epigastric abdominal pain; lipase 671; CT A/P findings consistent with acute pancreatitis Patient on LR at 150 cc/h; morphine and acetaminophen for pain control Diet advanced to full liquid diet Will continue to monitor urine output as abdomen is distended, therefore concern for patient developinig abdominal compartment syndrome Blood cultures negative at 48 hours #Chronic alcohol use #Concern for alcohol withdrawal #Transaminitis, improving #Hyperbilirubinemia, improving Patient endorses history of alcohol use in the past and started drinking again over the past year LFTs are downtrending; T. bili with mildly increased from 2.1 => 2.6 CIWA 2-3: headache; diaphoresis CIWA protocol in place; CTM for signs/symptoms of alcohol withdrawal #Constipation #Concern for ileus Patient feels constipated and requested laxatives overnight without any BM. Patient did pass gas and notes improvement of abdominal distention. Bowel sounds hypoactive on exam Patient encouraged to ambulate, which will help with constipation, as he typically remains in bed due to pain Senna as needed #Dysuria, improved UA was negative for infection #Concern for atelectasis Patient endorses shallow breaths due to increased abdominal pain; diminished breath sounds at bases on physical exam Incentive spirometry ordered and patient encouraged to use to prevent atelectasis #Electrolyte abnormalities Replete as needed Magnesium WNL, phosphorus 1.1 => Neutra-Phos twice daily x 1 day #Hyperlipidemia Triglycerides 112, total cholesterol 212, LDL 117, HDL 73 Holding off on atorvastatin at this time due to transaminitis Dispo: Patient admitted to [facility] for workup/management of acute pancreatitis and concern for alcohol withdrawal GI PPx: Protonix DVT PPx: SCDs, heparin Diet: Full liquid diet CODE STATUS: Full code Patient seen and care discussed with my attending Dr. Graves. Annita Escalera MD PGY-2 Attending Provider Attestation/Addendum I reviewed labs, imaging, EKG, home medications and prior available records. Face to face evaluation was performed by me. I have personally examined the patient and discussed assessment and plan with the IM team. I reviewed the resident note and agree with the plan with exceptions as below. Acute pancreatitis: Alcohol induced. Continue IV hydration. Manage pain and nausea/vomiting as needed. Advanced diet to full liquid diet. Advance as tolerated. Alcohol abuse: Counseled the patient regarding the importance of stopping alcohol completely. Started the patient on CIWA protocol. Continue thiamine and folic acid. Dysuria: Initial UA showed no UTI picture however sent repeat UA that appears the same. Might be in the setting of abdominal distention from acute pancreatitis. Hypomagnesemia: Resolved. In the setting of vomiting and alcoholism. Continue to replete electrolytes as needed and follow-up levels.
[2023-10-09] MEDS: NAPH,KPH MBDB 1 PACKET (1.5 GM) PO ×2 (08:18→20:02)
--- NOTE | 2023-10-09 14:04 | PC.NURSE ---
Pt ambulating in hallway. Tolerated well.
[2023-10-09] MEDS: MELATONIN 3 MG TABLET PO (20:02)
[2023-10-10] VITALS (9 sets, daily range): BP systolic 126–146; BP diastolic 86–91; PULSE 83–98; RESP 15–19; TEMP 36.1–36.9; O2SAT 95–96
[2023-10-10] MEDS: MORPHINE SULF INJ 4 MG/ML VIAL 2 MG IVP ×6 (02:36→20:38)
[2023-10-10] MEDS: RINGERS LACTATED 1000 ML 1,000 ML 100 ML IV ×2 (03:55→16:41)
[2023-10-10] MEDS: HEPARIN SOD INJ 5000 UNIT/ML VIAL SC ×3 (05:20→21:04)
[2023-10-10 06:08] LABS: Basophils % (Auto) 0 % (0-2.5); Eosinophils # (Auto) 0.1 Thou/mm3 (0.0-0.5); Eosinophils % (Auto) 1 % (0-10); Hematocrit 37.8 % (41.0-53.0); Hemoglobin 13.1 g/dL (13.5-16.0); Immature Granulocytes % (Auto) 1 % (0-0); Immature Granulocytes Auto 0.07 Thou/mm3 (0.00-0.00); Lymphocytes % (Auto) 8 % (10-50); Mean Corpuscular HGB Conc 34.7 g/dl (31.0-37.0); Mean Corpuscular Hemoglobin 30.3 pg (25.0-35.0); Mean Corpuscular Volume 87 fL (80-100); Monocytes # (Auto) 0.9 Thou/mm3 (0.0-0.8); Monocytes % (Auto) 7 % (0-12); Neutrophils # (Auto) 10.2 Thou/mm3 (1.8-7.7); Neutrophils % (Auto) 83 % (37-80); Nucleated Red Blood Cell % 0 /100 WBC (0); Platelet Count 230 Thou/mm3 (140-440); RDW Standard Deviation 46.9 fL (35.1-43.9); Red Blood Count 4.33 Miln/mm3 (4.50-5.90); White Blood Count 12.3 Thou/mm3 (3.8-10.6)
[2023-10-10 06:34] LABS: Alanine Aminotransferase 129 U/L (10-49); Albumin, Serum 4.4 gm/dL (3.5-5.0); Albumin/Globulin Ratio 1.5 (1.2-2.2); Alkaline Phosphatase 97 U/L (46-116); Anion Gap 7 (7-16); Aspartate Amino Transferase 106 U/L (0-34); BUN/Creatinine Ratio 12 Ratio (12-20); Bilirubin,Total 1.8 mg/dL (0.3-1.2); Blood Urea Nitrogen 6 mg/dL (9-23); Calcium 9.1 mg/dL (8.3-10.6); Calcium (Corrected) 9.1 mg/dL (8.5-10.1); Carbon Dioxide 27.1 mMol/L (20.0-31.0); Chloride 97 mMol/L (98-107); Creatinine (Component) 0.5 mg/dL (0.6-1.3); Estimated Creatinine Clearance 224.3 mL/min (>60); Glucose 91 mg/dL (74-106); Magnesium 2.2 mg/dL (1.6-2.6); Osmolality,Calculated 260 (275-295); Phosphorous 1.7 mg/dL (2.4-5.1); Potassium 3.1 mMol/L (3.4-5.1); Sodium 131 mMol/L (136-145); Total Protein 7.4 gm/dL (5.7-8.2); eGFR > 60 See Note
[2023-10-10] MEDS: POTASSIUM CHLORIDE 20 mEq TABCR 40 MEQ PO (09:04)
[2023-10-10] MEDS: LORazepam 0.5 MG TABLET PO (09:04)
[2023-10-10] MEDS: PANTOPRAZOLE INJ 40 MG VIAL IVP (09:07)
--- NOTE | 2023-10-10 09:50 | PC.SS ---
Rounding note: Advancing diet today, complaining of pain.
--- NOTE | 2023-10-10 11:26 | ESPR_ITS ---
<Statement entered by Avtar Vásquez MD - 10/10/23 14:45> I discussed with and supervised the leadership intern physician who took care of this patient. I personally saw and examined the patient and discussed the assessment and plan with the entire medicine team, including my attending Dr. Graves. I agree with the assessment and plan as documented below. Patient seen at bedside. No acute overnight events. Continue LR 100 cc/h, IV morphine 2 mg every 2 hours as needed, and IV Zofran 4 mg every 6 hours as needed for acute pancreatitis secondary to alcohol use. Overall symptoms mildly improved but not resolved. Still reporting intractable pain requiring IV pain medicine. We will advance patient's diet to low-fat and monitor to see how he does. Patient has remained afebrile and no need for antibiotics at this time. CIWA protocol still in place although appears mild at this time. Patient's last drink was on 10/05 or 10/06. Patient had BM. Encouraged patient to ambulate and sit in chair as tolerated. Repeat hematology and chemistry panel in AM. Dr. Vásquez (PGY-3) Internal Medicine Resident Documentation for date of: 10/10/23 Subjective Subjective Interval history: Patient was seen and examined at bedside. No acute overnight events. Patient was still complaining of abdominal distention, but the bowel movement, patient is urinating well since yesterday urinated 6 times, tolerated full liquid diet, will advance diet to low-fat diet, will continue monitor. Continue LR 100 cc/h, transaminitis improving, bilirubin down trended. Today patient CIWA was 4, last Ativan was given 0.5 mg yesterday around 11:45 PM. Patient still required pain management with morphine 2 mg every 3 hours. Labs and vitals were reviewed, leukocytosis improving WBC 12.3, CMP revealed mild hypokalemia which was replaced, vital signs within normal limits. Will continue closely monitor, continue current supportive management with IVF and morphine for pain control, advance diet as tolerates, Exam Vital Signs Temp Pulse Resp BP Pulse Ox O2 Del Method 97.0 F 88 19 139/88 H 96 Room Air 10/10/23 08:00 10/10/23 08:00 10/10/23 08:00 10/10/23 08:00 10/10/23 08:00 10/10/23 08:00 Narrative Exam GENERAL: no acute distress, AAO x3, well nourished. HEENT: Head AT/ NC. Mucous membranes moist. PERRL. NECK: Supple, no lymphadenopathy, no carotid bruits. CARDIOVASCULAR: RRR. Normal S1/S2, No m/r/g. No pitting edema of bilateral LEs. RESPIRATORY: No wheezing, rhonchi, crackles.Diminished breath sounds at bases GASTROINTESTINAL: Abdomen soft, distender no palpable masses. Bowel sounds present increased in all 4 quadrants. MUSCULOSKELETAL:? No cyanosis or edema, no visible joint swelling. NEUROLOGICAL: CN II-XII grossly intact. No focal deficits. Sensation intact, symmetric. PSYCHIATRIC: Awake and alert, not agitated, normal mood and affect. INTEGUMENTARY: No obvious rashes, no jaundice, normal turgor. Objective Labs 10/11/23 04:45 10/11/23 04:45 Labs: Laboratory Results - last 24 hr 10/10/23 05:05 WBC 12.3 H RBC 4.33 L Hgb 13.1 L Hct 37.8 L MCV 87 MCH 30.3 MCHC 34.7 RDW Std Deviation 46.9 H Plt Count 230 D Neut % (Auto) 83 H Lymph % (Auto) 8 L Barren % (Auto) 7 Eos % (Auto) 1 Baso % (Auto) 0 Neut # (Auto) 10.2 H Lymph # (Auto) 1.0 Barren # (Auto) 0.9 H Eos # (Auto) 0.1 Baso # (Auto) 0.0 Immature Gran # (Auto) 0.07 H Absolute Nucleated RBC 0.00 Immature Gran % 1 H Nucleated RBC % 0 Sodium 131 L Potassium 3.1 L D Chloride 97 L Carbon Dioxide 27.1 Anion Gap 7 BUN 6 L Creatinine 0.5 L Estim Creat Clear Calc 224.3 eGFR > 60 BUN/Creatinine Ratio 12 Glucose 91 Calculated Osmolality 260 L Calcium 9.1 Corrected Calcium 9.1 Phosphorus 1.7 L Magnesium 2.2 Total Bilirubin 1.8 H AST 106 H ALT 129 H Alkaline Phosphatase 97 D Total Protein 7.4 Albumin 4.4 Globulin 3.0 Albumin/Globulin Ratio 1.5 Quality Measures Quality Measures VTE prophylaxis (Heparin SubQ) Assessment & Plan Assessment Current Active Medications: Generic Name Dose Route Start Last Admin Trade Name Freq PRN Reason Stop Dose Admin Acetaminophen 650 mg 10/07/23 05:39 Acetaminophen 325 Mg Tablet PO 11/06/23 05:38 Q6H PRN Fever >101.5 Acetaminophen 650 mg 10/07/23 05:39 10/08/23 18:54 Acetaminophen 325 Mg Tablet PO 11/06/23 05:38 650 mg Q6H PRN Administration PAIN SCALE 1-3 (mild Heparin Sodium (Porcine) 5,000 unit 10/07/23 06:00 10/10/23 05:20 Heparin Sod Inj 5000 Unit/Ml Vial SC 10/21/23 05:59 5,000 unit Q8HR GUZMAN Administration Lactated Ringer's 1,000 mls @ 100 mls/hr 10/09/23 15:37 10/10/23 03:55 Lactated Ringers IV 11/08/23 15:36 100 mls/hr .Q10H GUZMAN Administration Lorazepam 0.5 mg 10/07/23 05:50 10/10/23 09:04 Lorazepam 0.5 Mg Tablet PO 10/12/23 05:49 0.5 mg Q4HR PRN Administration CIWA Score 2-6 Lorazepam 1 mg 10/07/23 05:50 Lorazepam 0.5 Mg Tablet PO 10/12/23 05:49 Q4HR PRN CIWA SCORE 7-11 Lorazepam 2 mg 10/07/23 05:50 Lorazepam 0.5 Mg Tablet PO 10/12/23 05:49 Q4HR PRN CIWA SCORE 12-15 Melatonin 3 mg 10/09/23 21:00 10/09/23 20:02 Melatonin 3 Mg Tablet PO 11/08/23 20:59 3 mg HS GUZMAN Administration Morphine Sulfate 2 mg 10/07/23 08:22 10/10/23 09:07 Morphine Sulf Inj 4 Mg/Ml Vial IVP 10/12/23 05:38 2 mg Q2H PRN Administration PAIN SCALE 7-10 (Severe Ondansetron HCl 4 mg 10/07/23 05:39 10/09/23 17:47 Ondansetron Inj 2 Mg/Ml Vial 2 Ml IV 11/06/23 05:38 4 mg Q6H PRN Administration NAUSEA OR VOMITING Protocol Pantoprazole Sodium 40 mg 10/07/23 09:00 10/10/23 09:07 Pantoprazole Inj 40 Mg Vial IVP 11/06/23 08:59 40 mg QDAY GUZMAN Administration Sennosides 1 tab 10/08/23 19:41 10/08/23 21:20 Senna Tablet PO 11/07/23 19:40 1 tab QDAY PRN Administration CONSTIPATION Protocol Plan Patient is a 37-year-old male with history of alcohol use disorder, history of alcohol induced pancreatitis who was admitted for acute pancreatitis secondary to alcohol ingestion after presenting to the ED with severe epigastric abdominal pain associated with N/V/D. Labs revealed transaminitis and lipase of 671. CT A/P positive for acute pancreatitis. #Acute pancreatitis, likely secondary to alcohol Patient met 3/3 diagnostic criteria: Epigastric abdominal pain; lipase 671; CT A/P findings consistent with acute pancreatitis Continue supportive management with IVF and morphine for pain control Advanced full liquid diet to low-fat diet, will monitor how he tolerates Patient is complaining of abdominal distention, might be secondary due to acute pancreatitis, initially there were concern of abdominal compartment syndrome, urine output was closely monitored, patient urinated multiple times Blood cultures negative at 48 hours #Chronic alcohol use #Concern for alcohol withdrawal #Transaminitis, improving #Hyperbilirubinemia, improving Patient endorses history of alcohol use in the past and started drinking again over the past year LFTs and bilirubin are downtrending CIWA protocol in place; CTM for signs/symptoms of alcohol withdrawal CIWA 0 on 10/09 Counseled the patient about the importance of stopping alcohol completely. Patient is stated that he is not taking alcohol on daily basis, he is not mostly binge drinker #Constipation-resolved #Concern for ileus Patient had bowel movement multiple times, Increased BS in all 4 quadrants Continue same bowel regimen #Dysuria-resolved UA was negative for infection #Concern for atelectasis Patient endorses shallow breaths due to increased abdominal pain; diminished breath sounds at bases on physical exam Incentive spirometry ordered and patient encouraged to use to prevent atelectasis #Electrolyte abnormalities Continue to monitor, replace as needed #Hyperlipidemia Triglycerides 112, total cholesterol 212, LDL 117, HDL 73 Holding off on atorvastatin in the setting of transaminitis Dispo: Patient admitted to [facility] for workup/management of acute pancreatitis and concern for alcohol withdrawal GI PPx: Protonix DVT PPx: SCDs, heparin Diet: Low-fat diet CODE STATUS: Full code Patient care was discussed with senior resident physician Dr. Vásquez and attending physician Dr. Star Kamara MD PGY-1 I have carefully reviewed this document. Due to imperfections in the voice software, there could be grammatical errors including phonetic/typographic errors. This in no way compromises the medical care the patient is receiving Attending Provider Attestation/Addendum I reviewed labs, imaging, EKG, home medications and prior available records. Face to face evaluation was performed by me. I have personally examined the patient and discussed assessment and plan with the IM team. I reviewed the resident note and agree with the plan with exceptions as below. Acute pancreatitis: Alcohol induced. Continue IV hydration. Manage pain and nausea/vomiting as needed. He has slight abdominal distention however will hold off repeat CT scan. Advanced diet to low-fat diet. Alcohol abuse: Counseled the patient regarding the importance of stopping alcohol completely. Started the patient on CIWA protocol. Continue thiamine and folic acid. Dysuria: Initial UA showed no UTI picture however sent repeat UA that appears the same. Might be in the setting of abdominal distention from acute pancreatitis. Hypomagnesemia: Resolved. In the setting of vomiting and alcoholism. Continue to replete electrolytes as needed and follow-up levels.
[2023-10-10] MEDS: ACETAMINOPHEN 325 MG TABLET 650 MG PO (12:08)
[2023-10-10] MEDS: MG HYD/AL HYD/SIME (Maalox Reg) SUSP 30 ML UDC PO (18:27)
[2023-10-10] MEDS: MELATONIN 3 MG TABLET PO (20:38)
[2023-10-11] VITALS (7 sets, daily range): BP systolic 113–139; BP diastolic 74–94; PULSE 70–86; RESP 16–20; TEMP 36–36.7; O2SAT 95–98
[2023-10-11] MEDS: MORPHINE SULF INJ 4 MG/ML VIAL 2 MG IVP ×3 (00:10→05:48)
[2023-10-11] MEDS: RINGERS LACTATED 1000 ML 1,000 ML 100 ML IV ×3 (02:52→20:53)
[2023-10-11] MEDS: HEPARIN SOD INJ 5000 UNIT/ML VIAL SC ×3 (05:22→21:00)
[2023-10-11 06:21] LABS: Basophils % (Auto) 0 % (0-2.5); Eosinophils % (Auto) 0 % (0-10); Hematocrit 36.8 % (41.0-53.0); Hemoglobin 12.7 g/dL (13.5-16.0); Immature Granulocytes % (Auto) 1 % (0-0); Immature Granulocytes Auto 0.09 Thou/mm3 (0.00-0.00); Lymphocytes # (Auto) 0.6 Thou/mm3 (1.0-4.8); Lymphocytes % (Auto) 6 % (10-50); Mean Corpuscular HGB Conc 34.5 g/dl (31.0-37.0); Mean Corpuscular Volume 87 fL (80-100); Monocytes # (Auto) 0.4 Thou/mm3 (0.0-0.8); Monocytes % (Auto) 3 % (0-12); Neutrophils # (Auto) 10.1 Thou/mm3 (1.8-7.7); Neutrophils % (Auto) 90 % (37-80); Nucleated Red Blood Cell % 0 /100 WBC (0); Platelet Count 242 Thou/mm3 (140-440); RDW Standard Deviation 47.1 fL (35.1-43.9); Red Blood Count 4.23 Miln/mm3 (4.50-5.90); White Blood Count 11.2 Thou/mm3 (3.8-10.6)
[2023-10-11 06:42] LABS: Alanine Aminotransferase 131 U/L (10-49); Albumin, Serum 4.2 gm/dL (3.5-5.0); Albumin/Globulin Ratio 1.4 (1.2-2.2); Alkaline Phosphatase 117 U/L (46-116); Anion Gap 6 (7-16); Aspartate Amino Transferase 126 U/L (0-34); BUN/Creatinine Ratio 15 Ratio (12-20); Bilirubin,Total 1.1 mg/dL (0.3-1.2); Blood Urea Nitrogen 9 mg/dL (9-23); Calcium 9.3 mg/dL (8.3-10.6); Calcium (Corrected) 9.3 mg/dL (8.5-10.1); Chloride 101 mMol/L (98-107); Creatinine (Component) 0.6 mg/dL (0.6-1.3); Glucose 127 mg/dL (74-106); Osmolality,Calculated 267 (275-295); Potassium 4.4 mMol/L (3.4-5.1); Sodium 133 mMol/L (136-145); Total Protein 7.2 gm/dL (5.7-8.2); eGFR > 60 See Note
[2023-10-11] MEDS: PANTOPRAZOLE INJ 40 MG VIAL IVP (09:38)
[2023-10-11] MEDS: HYDROcodone/APAP 5/325 TABLET 1 TAB PO ×2 (12:19→19:17)
--- NOTE | 2023-10-11 15:04 | PD.RESPRO ---
Documentation for date of: 10/11/23 Subjective Subjective Interval history: Patient was seen and examined at bedside. He is tolerating low fat diet, having bowel movements and has improved abdominal pain. Will change morphine to breakthrough and start norco. Anticipate DC in 24 hours if pain remains controlled. Labs reviewed, TBili wnl. Exam Vital Signs Temp Pulse Resp BP Pulse Ox O2 Del Method 97.8 F 73 18 138/89 H 97 Room Air 10/11/23 12:00 10/11/23 12:00 10/11/23 12:00 10/11/23 12:00 10/11/23 12:00 10/11/23 12:00 Narrative Exam Gen: AAOx3, mild distress from abd pain HEENT: NCAT, PERRLA, EOMI, MMM, no LAD CVS: normal S1, S2. RRR. No MRG Resp: CTA B/L. Abd: TTP has improved, no rebound tenderness, abdominal distention has improved, non-distended. BS+ hypoactive MSK: Good ROM in BUE & BLE. No edema or rash. Neuro: CN II-XII grossly intact. No focal deficits noted Objective Labs 10/12/23 04:35 10/12/23 04:35 Labs: Laboratory Results - last 24 hr 10/11/23 04:45 WBC 11.2 H RBC 4.23 L Hgb 12.7 L Hct 36.8 L MCV 87 MCH 30.0 MCHC 34.5 RDW Std Deviation 47.1 H Plt Count 242 Neut % (Auto) 90 H Lymph % (Auto) 6 L Russell % (Auto) 3 Eos % (Auto) 0 Baso % (Auto) 0 Neut # (Auto) 10.1 H Lymph # (Auto) 0.6 L Russell # (Auto) 0.4 Eos # (Auto) 0.0 Baso # (Auto) 0.0 Immature Gran # (Auto) 0.09 H Absolute Nucleated RBC 0.00 Immature Gran % 1 H Nucleated RBC % 0 Sodium 133 L Potassium 4.4 D Chloride 101 Carbon Dioxide 26.0 Anion Gap 6 L BUN 9 Creatinine 0.6 Estim Creat Clear Calc 187.0 eGFR > 60 BUN/Creatinine Ratio 15 Glucose 127 H Calculated Osmolality 267 L Calcium 9.3 Corrected Calcium 9.3 Total Bilirubin 1.1 D AST 126 H ALT 131 H Alkaline Phosphatase 117 H D Total Protein 7.2 Albumin 4.2 Globulin 3.0 Albumin/Globulin Ratio 1.4 Quality Measures Quality Measures VTE prophylaxis (Heparin SubQ) Assessment & Plan Assessment Current Active Medications: Generic Name Dose Route Start Last Admin Trade Name Freq PRN Reason Stop Dose Admin Acetaminophen 650 mg 10/07/23 05:39 Acetaminophen 325 Mg Tablet PO 11/06/23 05:38 Q6H PRN Fever >101.5 Acetaminophen 650 mg 10/07/23 05:39 10/10/23 12:08 Acetaminophen 325 Mg Tablet PO 11/06/23 05:38 650 mg Q6H PRN Administration PAIN SCALE 1-3 (mild Hydrocodone Bitart/Acetaminophen 1 tab 10/11/23 09:05 10/11/23 12:19 Hydrocodone/Apap 5/325 Tablet PO 10/16/23 09:04 1 tab Q6HR PRN Administration PAIN SCALE 4-10(Mod-Sev Heparin Sodium (Porcine) 5,000 unit 10/07/23 06:00 10/11/23 14:38 Heparin Sod Inj 5000 Unit/Ml Vial SC 10/21/23 05:59 5,000 unit Q8HR GUZMAN Administration Lactated Ringer's 1,000 mls @ 100 mls/hr 10/09/23 15:37 10/11/23 12:20 Lactated Ringers IV 11/08/23 15:36 100 mls/hr .Q10H GUZMAN Administration Lorazepam 0.5 mg 10/07/23 05:50 10/10/23 09:04 Lorazepam 0.5 Mg Tablet PO 10/12/23 05:49 0.5 mg Q4HR PRN Administration CIWA Score 2-6 Lorazepam 1 mg 10/07/23 05:50 Lorazepam 0.5 Mg Tablet PO 10/12/23 05:49 Q4HR PRN CIWA SCORE 7-11 Lorazepam 2 mg 10/07/23 05:50 Lorazepam 0.5 Mg Tablet PO 10/12/23 05:49 Q4HR PRN CIWA SCORE 12-15 Melatonin 3 mg 10/09/23 21:00 10/10/23 20:38 Melatonin 3 Mg Tablet PO 11/08/23 20:59 3 mg HS GUZMAN Administration Morphine Sulfate 2 mg 10/11/23 09:05 Morphine Sulf Inj 4 Mg/Ml Vial IVP 10/12/23 08:21 Q4HR PRN BREAKTHRU PAIN (SEVERE 7-10) Ondansetron HCl 4 mg 10/07/23 05:39 10/09/23 17:47 Ondansetron Inj 2 Mg/Ml Vial 2 Ml IV 11/06/23 05:38 4 mg Q6H PRN Administration NAUSEA OR VOMITING Protocol Pantoprazole Sodium 40 mg 10/12/23 09:00 Pantoprazole 40 Mg Tablet PO 11/11/23 08:59 QDAY GUZMAN Sennosides 1 tab 10/08/23 19:41 10/08/23 21:20 Senna Tablet PO 11/07/23 19:40 1 tab QDAY PRN Administration CONSTIPATION Protocol Plan Patient is a 37-year-old male with history of alcohol use disorder, history of alcohol induced pancreatitis who was admitted for acute pancreatitis secondary to alcohol ingestion after presenting to the ED with severe epigastric abdominal pain associated with N/V/D. Labs revealed transaminitis and lipase of 671. CT A/P positive for acute pancreatitis. #Acute pancreatitis, likely secondary to alcohol Patient met 3/3 diagnostic criteria: Epigastric abdominal pain; lipase 671; CT A/P findings consistent with acute pancreatitis Continue supportive management with IVF, norco 5 q6h prn and morphine for breakthrough Tolerating low-fat diet, will monitor how he tolerates Patient is complaining of abdominal distention, might be secondary due to acute pancreatitis, initially there were concern of abdominal compartment syndrome, urine output was closely monitored, patient urinated multiple times Blood cultures negative at 48 hours #Chronic alcohol use #Concern for alcohol withdrawal #Transaminitis, improving #Hyperbilirubinemia, improving Patient endorses history of alcohol use in the past and started drinking again over the past year LFTs and bilirubin are downtrending CIWA protocol in place; CTM for signs/symptoms of alcohol withdrawal CIWA 0 on 10/09 Counseled the patient about the importance of stopping alcohol completely. Patient is stated that he is not taking alcohol on daily basis, he is not mostly binge drinker #Constipation-resolved #Concern for ileus, resolved Patient had bowel movement multiple times, Increased BS in all 4 quadrants Continue same bowel regimen #Dysuria-resolved UA was negative for infection #Concern for atelectasis Patient endorses shallow breaths due to increased abdominal pain; diminished breath sounds at bases on physical exam Incentive spirometry ordered and patient encouraged to use to prevent atelectasis #Electrolyte abnormalities Continue to monitor, replace as needed #Hyperlipidemia Triglycerides 112, total cholesterol 212, LDL 117, HDL 73 Holding off on atorvastatin in the setting of transaminitis Dispo: Patient admitted [facility] for workup/management of acute pancreatitis and concern for alcohol withdrawal; pain well tolerated; anticipate DC in 24hrs GI PPx: Protonix DVT PPx: SCDs, heparin Diet: Low-fat diet CODE STATUS: Full code Patient seen and care discussed with my attending Dr. Graves. Annita Escalera MD PGY-2 Attending Provider Attestation/Addendum I reviewed labs, imaging, EKG, home medications and prior available records. Face to face evaluation was performed by me. I have personally examined the patient and discussed assessment and plan with the IM team. I reviewed the resident note and agree with the plan with exceptions as below. Acute pancreatitis: Alcohol induced. Continue IV hydration. Manage pain and nausea/vomiting as needed. He has slight abdominal distention however will hold off repeat CT scan. Advanced diet to low-fat diet. Switched pain medications to oral with IV morphine only for breakthrough pain. Alcohol abuse: Counseled the patient regarding the importance of stopping alcohol completely. Started the patient on CIWA protocol. Continue thiamine and folic acid. Dysuria: Initial UA showed no UTI picture however sent repeat UA that appears the same. Might be in the setting of abdominal distention from acute pancreatitis. Hypomagnesemia: Resolved. In the setting of vomiting and alcoholism. Continue to replete electrolytes as needed and follow-up levels.
[2023-10-11] MEDS: MELATONIN 3 MG TABLET PO (20:53)
[2023-10-12] VITALS: BP 139/96; PULSE 81; RESP 18; TEMP 36.6; O2SAT 96
[2023-10-12] MEDS: DiphenhydrAMINE 25 MG CAPSULE PO (01:19)
[2023-10-12] MEDS: HYDROcodone/APAP 5/325 TABLET 1 TAB PO ×2 (01:21→07:44)
[2023-10-12 04:00] VITALS: BP 133/91; PULSE 62; PULSE 77; RESP 18; TEMP 36.4; O2SAT 96
[2023-10-12] MEDS: HEPARIN SOD INJ 5000 UNIT/ML VIAL SC (05:20)
[2023-10-12 05:47] LABS: Basophils % (Auto) 0 % (0-2.5); Eosinophils # (Auto) 0.1 Thou/mm3 (0.0-0.5); Eosinophils % (Auto) 1 % (0-10); Hemoglobin 12.8 g/dL (13.5-16.0); Immature Granulocytes % (Auto) 1 % (0-0); Immature Granulocytes Auto 0.07 Thou/mm3 (0.00-0.00); Lymphocytes # (Auto) 1.4 Thou/mm3 (1.0-4.8); Lymphocytes % (Auto) 13 % (10-50); Mean Corpuscular HGB Conc 33.7 g/dl (31.0-37.0); Mean Corpuscular Hemoglobin 30.1 pg (25.0-35.0); Mean Corpuscular Volume 89 fL (80-100); Monocytes % (Auto) 9 % (0-12); Neutrophils # (Auto) 8.7 Thou/mm3 (1.8-7.7); Neutrophils % (Auto) 76 % (37-80); Nucleated Red Blood Cell % 0 /100 WBC (0); Platelet Count 299 Thou/mm3 (140-440); Red Blood Count 4.25 Miln/mm3 (4.50-5.90); White Blood Count 11.3 Thou/mm3 (3.8-10.6)
[2023-10-12 06:06] LABS: Alanine Aminotransferase 142 U/L (10-49); Albumin, Serum 4.2 gm/dL (3.5-5.0); Albumin/Globulin Ratio 1.4 (1.2-2.2); Alkaline Phosphatase 117 U/L (46-116); Anion Gap 7 (7-16); Aspartate Amino Transferase 126 U/L (0-34); BUN/Creatinine Ratio 15 Ratio (12-20); Blood Urea Nitrogen 9 mg/dL (9-23); Calcium 9.2 mg/dL (8.3-10.6); Calcium (Corrected) 9.2 mg/dL (8.5-10.1); Carbon Dioxide 28.2 mMol/L (20.0-31.0); Chloride 100 mMol/L (98-107); Creatinine (Component) 0.6 mg/dL (0.6-1.3); Globulin 2.9 gm/dL (2.3-3.5); Glucose 97 mg/dL (74-106); Osmolality,Calculated 268 (275-295); Potassium 3.1 mMol/L (3.4-5.1); Sodium 135 mMol/L (136-145); Total Protein 7.1 gm/dL (5.7-8.2); eGFR > 60 See Note
[2023-10-12 08:00] VITALS: BP 153/100; PULSE 90; RESP 18; TEMP 37.1; O2SAT 97
--- NOTE | 2023-10-12 08:12 | PD.RESDS ---
Planned Discharge Date 10/12/23 DS: Providers Provider Date of admission: 10/07/23 05:39 Primary care physician: RAAD Faith MD Admitting Provider: Jose G Charles MD Attending Provider on Admission: Anirudh Graves MD Attending Provider on DC: Annita Escalera MD Discharging Provider: Annita Escalera MD DS: Diagnosis Problem List Completed Was Problem List Reviewed/Reconciled?: Yes Hospital Course Hospital Course Hospital course: Patient was a 37-year-old male with history significant for alcohol use disorder, history of alcohol induced pancreatitis who presented to ED with severe epigastric abdominal pain, N/V/D after drinking several beers over the past few days prior to admission. Patient had significant epigastric abdominal pain and was unable to tolerate p.o. intake. Lipase noted to be [address] A/P was positive for acute pancreatitis. Patient was admitted for acute pancreatitis secondary to alcohol ingestion, and concern for alcohol withdrawal. Over the course of admission, patient's pain was managed with morphine and then p.o. [place]. He was able to tolerate p.o. intake slowly and diet was advanced from clear liquid diet to low-fat diet. He was able to ambulate, urinate, and defecate. There was concern for atelectasis as patient endorsed shallow breaths due to increased abdominal pain, and there was diminished breath sounds at bases on physical exam. Incentive spirometer was ordered and patient was using it throughout the admission. Patient had minimal alcohol withdrawal symptoms as CIWA noted to be 2?3, requiring minimal benzodiazepines. Patient was deemed stable for discharge. Discussed the importance of stopping alcohol completely. #Acute pancreatitis, secondary to alcohol ingestion, improved #Chronic alcohol use #Concern for alcohol withdrawal #Transaminitis, improving #Hyperbilirubinemia, improving #Constipation, resolved #Concern for ileus, resolved #Dysuria, resolved #Concern for atelectasis, improved #Electrolyte abnormalities #Hyperlipidemia Patient seen and care discussed with my attending Dr. Graves. Annita Escalera MD PGY-2 Status at Discharge Cognitive/behavioral status at discharge: AAOx3 Time Spent with Patient Time attestation: Total time spent providing and/or coordinating discharge services: Time spent: Greater than 30 minutes Exam Vital Signs Temp Pulse Resp BP Pulse Ox O2 Del Method 97.5 F 62 18 133/91 H 96 Room Air 10/12/23 04:00 10/12/23 04:00 10/12/23 04:00 10/12/23 04:00 10/12/23 04:00 10/12/23 00:00 Narrative Exam Gen: AAOx3, pleasant to speak with HEENT: NCAT, PERRLA, EOMI, MMM, no LAD CVS: normal S1, S2. RRR. No MRG Resp: CTA B/L. Breath sounds improved at bases Abd: TTP has improved, no rebound tenderness, abdominal distention has improved, non-distended. BS+ normal MSK: Good ROM in BUE & BLE. No edema or rash. Neuro: CN II-XII grossly intact. No focal deficits noted Discharge Plan Plan Patient Disposition: HOME (Self Care) Disposition Comment: Stable for discharge Patient condition on transfer: Stable Care Plan Goals: Follow up with your primary care provider within 1 week of discharge Take protonix daily for acid reflux Take senna as needed for constipation Take norco up to 3 times a day, as needed for severe pain that is not controlled with tylenol Avoid alcohol If your symptoms return or worsen, return to your nearest ED Prescriptions/Referrals Prescriptions/Med Rec: New sennosides [Senna Lax] 8.6 mg Tablet 17.2 mg PO QDAY PRN (Reason: Constipation) Qty: 14 0RF pantoprazole 40 mg Tablet,Delayed Release (Dr/Ec) 40 mg PO QDAY 30 Days Qty: 30 0RF hydrocodone-acetaminophen 7.5-325 mg tablet 1 tab PO Q6H MDD 4 PRN (Reason: pain) 3 Days Qty: 12 0RF Referrals: Yeyo Peace MD [Primary Care Provider] - Patient/Caregiver Discharge Instructions Discharge Activity: activity as tolerated Education Materials: Understanding Pancreatitis, Alcohol Withdrawal: What to Expect, Pancreatitis Acute Dc Print Language: Bulgarian Stand Alone Forms: Patient Portal Info Letter Discharge Order Discharge Orders: Discharge (Routine); Ordered 10/12/23 Ordered By: Avtar Vásquez Quality Discharge Quality Measures VTE prophylaxis Attestestation Attestation I reviewed labs, imaging, EKG, home medications and prior available records. Face to face evaluation was performed by me. I have personally examined the patient and discussed assessment and plan with the IM team. I reviewed the resident note and agree with the plan with exceptions as below. Acute pancreatitis: Alcohol induced. Consult the patient regarding the importance of avoiding alcohol. Continue low-fat diet. Oral pain medication management as needed. Alcohol abuse: Counseled the patient regarding the importance of stopping alcohol completely. Continue thiamine and folic acid. Dysuria: Initial UA showed no UTI picture however sent repeat UA that appears the same. Might be in the setting of abdominal distention from acute pancreatitis. Hypomagnesemia: Resolved. In the setting of vomiting and alcoholism. Continue to replete electrolytes as needed and follow-up levels. Transaminitis: Mild. In the setting of alcohol use and pancreatitis. Monitor LFTs as outpatient. Time spent is 40 minutes. More than 50% of the time was spent on patient education and coordination of care.
[2023-10-12] MEDS: PANTOPRAZOLE 40 MG TABLET PO (08:59)
[2023-10-12] MEDS: POTASSIUM CHLORIDE 20 mEq TABCR 40 MEQ PO (08:59)
[2023-10-12] MEDS: RINGERS LACTATED 1000 ML 1,000 ML 100 ML IV (09:00)
[2023-10-12 12:00] VITALS: BP 146/100; PULSE 87; RESP 18; TEMP 36.8; O2SAT 99
== END 2023-10-12 13:47 | disposition home or self-care (01) | DRG 282 ==
LOC: SERX 06:41 → SERHOLD 06:43 → S3SX 15:16
PROVIDERS: Physician Assistant; Student in an Organized Health Care Education/Training Program; Admitting Provider Internal Medicine; Emergency Provider Emergency Medicine; PCP Family Medicine; Visit Provider Student in an Organized Health Care Education/Training Program
DX: K85.20 Alcohol induced acute pancreatitis without necrosis or infection (principal); F10.139 Alcohol abuse with withdrawal, unspecified; K76.0 Fatty (change of) liver, not elsewhere classified; R30.0 Dysuria; E83.42 Hypomagnesemia; R65.10 Systemic inflammatory response syndrome (SIRS) of non-infectious origin without acute organ dysfunction; E78.5 Hyperlipidemia, unspecified; G47.9 Sleep disorder, unspecified; E87.6 Hypokalemia; K59.00 Constipation, unspecified; J98.11 Atelectasis; Y90.0 Blood alcohol level of less than 20 mg/100 ml; Z87.19 Personal history of other diseases of the digestive system
CPT/HCPCS: 36415; 74177; 76705; 80053; 80061; 80074; 80307; 80320; 81001; 82248; 83036; 83605; 83690; 83735; 84100; 84145; 84478; 85025; 85610; 85730; 86140; 87040; 93005; 93225; 94664; 96361; 96365; 96372; 99285; A4649; J1643; J2270; J2405; J2543; J3475; J7030; J7120; Q9967; S0164; A9270; C9113; G0480

== ENCOUNTER 2025-06-07 12:41 | Observation (INO) | payer MEDICAID, SELFPAY ==
[2025-06-07 12:42] VITALS: BMI 28.7
[2025-06-07 12:59] VITALS: BP 134/82; PULSE 109; RESP 16; TEMP 37.1; O2SAT 100
--- NOTE | 2025-06-07 13:09 | XR_ITS ---
EXAMINATION: PA lateral chest 2 views TECHNIQUE: Upright PA lateral chest 2 views Date and time: June 07, 2025, 1311 hours INDICATIONS: Chest tightness beginning 2 days ago FINDINGS: Normal heart size The lungs are clear. The osseous structures are intact IMPRESSION: No active disease
--- NOTE | 2025-06-07 13:09 | EKG_ITS ---
[facility] Test Date: 2025-06-07 Pat Name: MERLE LEO Department: Room: - Gender: Male Match Up Person: : 1985 Requested By: Gildardo Mccarty (CYNTHIA) Order Number: [id number] Reading MD: Gildardo Mccarty (TODDLER NANNY) Measurements Intervals [place] Rate: 112 P: 48 MS: 158 QRS: 4 QRSD: 100 T: 21 QT: 339 QTc: 464 Interpretive Statements SINUS TACHYCARDIA ST DEVIATION AND MODERATE T-WAVE ABNORMALITY, CONSIDER INFERIOR ISCHEMIA [-0.1+ mV T-WAVE IN II/aVF] Compared to ECG 03/20/2024 20:17:55 Possible ischemia now present Sinus rhythm no longer present Incomplete right bundle-branch block no longer present T-wave abnormality still present /store/S0/[id number].pdf
--- NOTE | 2025-06-07 13:10 | PD.EDRME ---
Rapid Medical Screening Exam RME Arrival date/time: 06/07/25 12:41 39-year-old male presents to the emergency department complaint of nausea vomiting abdominal pain Chief Complaint: Nausea/Vomiting/Diarrhea Vital signs: Vital Signs Temperature 98.8 F 06/07/25 12:59 Pulse Rate 109 H 06/07/25 12:59 Respiratory Rate 16 06/07/25 12:59 Blood Pressure 134/82 H 06/07/25 12:59 Pulse Oximetry (%) 100 06/07/25 12:59 Oxygen Delivery Method Room Air 06/07/25 12:59 Vital signs reviewed by provider: Yes Exam: On exam patient appears to have pain Clinical Impression: Lab work imaging EKG obtained
[2025-06-07] MEDS: METOCLOPRAMIDE 5 MG TABLET 10 MG PO ×2 (13:19→20:05)
[2025-06-07] MEDS: FAMOTIDINE 20 MG TABLET 40 MG PO (13:19)
[2025-06-07 14:18] LABS: Basophils # (Auto) 0.0 Thou/mm3 (0.0-0.2); Basophils % (Auto) 0 % (0-2.5); Eosinophils # (Auto) 0.1 Thou/mm3 (0.0-0.5); Eosinophils % (Auto) 1 % (0-10); Hematocrit 46.7 % (41.0-53.0); Hemoglobin 16.0 g/dL (13.5-16.0); Immature Granulocytes Auto 0.04 Thou/mm3 (0.00-0.00); Lymphocytes # (Auto) 2.0 Thou/mm3 (1.0-4.8); Lymphocytes % (Auto) 19 % (10-50); Mean Corpuscular HGB Conc 34.3 g/dl (31.0-37.0); Mean Corpuscular Hemoglobin 28.2 pg (25.0-35.0); Mean Corpuscular Volume 82 fL (80-100); Monocytes # (Auto) 0.9 Thou/mm3 (0.0-0.8); Monocytes % (Auto) 8 % (0-12); Neutrophils # (Auto) 7.3 Thou/mm3 (1.8-7.7); Neutrophils % (Auto) 71 % (37-80); Nucleated Red Blood Cell # 0.00 Thou/mm3 (0.00-0.00); Nucleated Red Blood Cell % 0 /100 WBC (0); Platelet Count 358 Thou/mm3 (140-440); RDW Standard Deviation 47.0 fL (35.1-43.9); Red Blood Count 5.67 Miln/mm3 (4.50-5.90); White Blood Count 10.3 Thou/mm3 (3.8-10.6)
[2025-06-07 14:20] LABS: Bilirubin,Urine 1+ (Negative); Blood,Urine Negative (Negative); Collection Type, Urine Clean Catch; Color,Urine Yellow (Lt Yel-Yel); Culture Indicated,Urine Not Indicated; Glucose, Urine Negative (Negative); Hyaline Casts,Urine 1 /hpf (0-1); Ketones,Urine 3+ (Negative); Leukocyte Esterase,Urine Negative (Negative); Nitrite,Urine Negative (Negative); PH,Urine 6.5 (5.0-7.0); Protein,Urine 1+ (Neg - Trace); RBC,Urine 7 /hpf (0-3); Specific Gravity,Urine 1.029 (1.001-1.035); Squamous Epithelial Cell,Urine < 1 /hpf (0-5); Urobilinogen,Urine 2.0 mg/dL (0.0-1.0); WBC,Urine 4 /hpf (0-5)
[2025-06-07 14:22] LABS: Clarity,Urine Hazy (Clear/Hazy)
[2025-06-07 14:27] LABS: Amphetamine/Methamp Scrn,U Negative (Negative); Barbiturate Screen,Urine Negative (Negative); Benzodiazepines Screen,Urine Negative (Negative); Benzoylecgonine Screen, Ur Negative (Negative); Fentanyl Screen,Urine Negative (Negative); Opiate Screen,Urine Positive (Negative); THC Screen,Urine Negative (Negative)
[2025-06-07 14:36] LABS: INR 1.1 (0.9-1.3); Partial Thromboplastin Time 24.9 Seconds (22.0-36.0); Prothrombin Time 11.5 Seconds (9.0-12.2)
[2025-06-07 14:37] LABS: Alanine Aminotransferase 228 U/L (10-49); Albumin, Serum 5.5 gm/dL (3.5-5.0); Albumin/Globulin Ratio 1.6 (1.2-2.2); Alcohol, Blood Medical < 3.0 mg/dL (0-10.0); Alkaline Phosphatase 69 U/L (46-116); Anion Gap 17 (7-16); Aspartate Amino Transferase 117 U/L (0-34); BUN/Creatinine Ratio 10 Ratio (12-20); Bilirubin,Total 1.9 mg/dL (0.3-1.2); Blood Urea Nitrogen 13 mg/dL (9-23); Calcium 12.0 mg/dL (8.3-10.6); Calcium (Corrected) 12.0 mg/dL (8.5-10.1); Carbon Dioxide 31.9 mMol/L (20.0-31.0); Chloride 87 mMol/L (98-107); Creatinine (Component) 1.3 mg/dL (0.6-1.3); Estimated Creatinine Clearance 85.6 mL/min (>60); Globulin 3.4 gm/dL (2.3-3.5); Glucose 101 mg/dL (74-106); Lipase 40 U/L (12-53); Magnesium 1.1 mg/dL (1.6-2.6); Osmolality,Calculated 272 (275-295); Potassium 3.1 mMol/L (3.4-5.1); Sodium 136 mMol/L (136-145); Total Protein 8.9 gm/dL (5.7-8.2); Troponin I < 0.002 ng/mL (0.0-0.045); eGFR > 60 See Note
[2025-06-07 14:38] LABS: B-Type Natriuretic Peptide < 20 pg/mL (0-100)
--- NOTE | 2025-06-07 14:45 | XR_ITS ---
Examination: Abdomen sonogram, Limited Date and time of exam: June 07, 2025, 1452 hours INDICATIONS: Right upper abdominal pain nausea vomiting beginning 3 days ago Technique: Real-time mccauley scale transabdominal sonographic images of the upper abdomen obtained. Findings: Normal gallbladder Normal common bile duct 0.3 cm Pancreatic head 2.6 cm Liver 16.4 cm fatty infiltration Normal hepatopetal portal venous flow Patent IVC IMPRESSION: Normal gallbladder Normal common bile duct
--- NOTE | 2025-06-07 14:45 | XR_ITS ---
Examination: CT abdomen and pelvis without contrast. Coronal 3-D reconstructions. Sagittal 2-D reconstructions. Date and time of exam: June 07, 2025, 1617 hours, comparison October 07, 2023 INDICATIONS: Severe generalized abdominal pain with nausea today, history acute pancreatitis 2023 CTDI: vol (mGy): 6.91 DLP: (mGycm): 427 Technique: Axial images of the abdomen have been obtained, 3 mm slice thickness Intravenous contrast material has not been administered. Low dose protocols were performed. One or more of the following dose reduction techniques were used; automated exposure control, adjustment of the mA and/or KV according to patient size, use of iterative reconstruction technique. Findings: Severe diffuse fatty infiltration throughout the liver No definite gallstones Spleen is not enlarged No current peripancreatic edema Normal adrenal glands Perinephric stranding Mild renal scar formation Aorta normal size No bowel obstruction Normal appendix No diverticulitis Normal seminal vesicles No prostatomegaly Contracted urinary bladder with mild urinary bladder wall thickening up to 6 mm, no bladder calculi Mild osteopenia Small fat-containing right inguinal hernia IMPRESSION: Severe diffuse fatty infiltration throughout the liver No current pancreatitis No renal or ureteral calculi Normal appendix No bowel obstruction diverticulitis or free air
--- NOTE | 2025-06-07 16:02 | EDNOTE_ITS ---
Nausea/Vomit./Diarrhea-RME/HPI General Chief complaint: Nausea/Vomiting/Diarrhea Stated complaint: VOMITING X2 DAYS/ABD PAIN Time Seen by Provider: 06/07/25 14:44 Arrival date/time: 06/07/25 12:41 RME / HPI RME / HPI Narrative: 06/07/25 12:41 39-year-old male presents to the emergency department complaint of nausea vomiting abdominal pain Exam: On exam patient appears to have pain Impression: Lab work imaging EKG obtained Related Data Previous Rx's ?Medication ?Instructions ?Recorded sennosides 8.6 mg tablet (Senna 17.2 mg (2 x 8.6 mg) P O QDAY PRN 10/12/23 Lax) Constipation #14 tabs Allergies Allergy/AdvReac Type Severity Reaction Status Date / Time No Known Allergies Allergy Verified 06/07/25 12:44 Course Quality Measures none Orders Category Date Time Status EKG (ED ONLY) *Do not use* NOW Care 06/07/25 13:[address] abdomen pelvis wo con Stat Exams 06/07/25 14:45 Completed EKG (ED Only) Stat Exams 06/07/25 13:09 Draft US gall bladder Stat Exams 06/07/25 14:45 Completed XR chest 2V Stat Exams 06/07/25 13:09 Completed Alcohol, Blood Medical Stat Lab 06/07/25 14:03 Completed B-Type Natriuretic Peptide Stat Lab 06/07/25 14:03 Completed CBC Stat Lab 06/07/25 14:03 Completed Comprehensive Metabolic Panel Stat Lab 06/07/25 14:03 Completed Drug Screen,Urine Stat Lab 06/07/25 13:55 Completed Lipase Stat Lab 06/07/25 14:03 Completed Magnesium Stat Lab 06/07/25 14:03 Completed Partial Thromboplastin Time Stat Lab 06/07/25 14:03 Completed Prothrombin Time with INR Stat Lab 06/07/25 14:03 Completed Troponin I Stat Lab 06/07/25 14:03 Completed Urinalysis, C/S if Indicated Stat Lab 06/07/25 13:55 Completed Famotidine [Pepcid] Med 06/07/25 13:08 Discontinued 40 mg PO X1 ONE Magnesium Sulfate 2 GM Ivpb [Magnesium Sulfate Ivpb] Med 06/07/25 16:38 Active 2 gm in 50 ml IV X1 Metoclopramide [Reglan] Med 06/07/25 13:08 Discontinued 10 mg PO X1 ONE POTASSIUM CHL 10 mEq IVPB [Kcl Ivpb] Med 06/07/25 16:39 Active 10 meq in 100 ml IV Q1H Sodium Chloride 0.9% 1000 ml [Ns] 2,000 ml Med 06/07/25 16:38 Active IV 999 mls/hr Vital Signs Vital signs: Vital Signs Temperature 98.8 F 06/07/25 12:59 Pulse Rate 109 H 06/07/25 12:59 Respiratory Rate 16 06/07/25 12:59 Blood Pressure 134/82 H 06/07/25 12:59 Pulse Oximetry (%) 100 06/07/25 12:59 Oxygen Delivery Method Room Air 06/07/25 12:59 Nausea/Vomiting/Diarrhea Patient data External records reviewed:: [facility] previous records Clinical information provided by:: patient Social determinants that could affect healthcare access:: none Patient has the following chronic illnesses:: HTN, pancreatitis How is presenting disease/condition affected by chronic disease/condition?: uneffected by Evaluation data The following diagnostics were reviewed and interpreted by me:: lab results Lab and/or radiology exams considered but not ordered:: none Interpretation Summary: Hypomagnesemia, hypokalemia, hypercalcemia noted on labs. Medications / Prescriptions Medications / Prescriptions considered but not ordered:: None Medication administrations:: Medication Administration History Sodium Chloride (Ns) 2,000 mls @ 999 mls/hr IV .Q2H1M ONE Stop: 06/07/25 18:38 Magnesium Sulfate (Magnesium Sulfate Ivpb) 2 gm in 50 mls @ 25 mls/hr IV X1 ONE Stop: 06/07/25 18:37 Potassium Chloride (Kcl Ivpb) 10 meq in 100 mls @ 100 mls/hr IV Q1H GUZMAN Stop: 06/07/25 18:38 Discontinued Medications Famotidine (Famotidine 20 Mg Tablet) 40 mg PO X1 ONE Stop: 06/07/25 13:09 Last Admin: 06/07/25 13:19 Dose: 40 mg Documented By: BERTO Metoclopramide HCl (Metoclopramide 5 Mg Tablet) 10 mg PO X1 ONE Stop: 06/07/25 13:09 Last Admin: 06/07/25 13:19 Dose: 10 mg Documented By: BERTO . Consultations Consultation(s) initiated? (list below): Yes Diagnosis Nausea Differential Diagnosis: gastroenteritis, drug-induced nausea and vomiting and dehydration Most likely diagnosis given after review of the tests above:: Gastroenteritis, hypomagnesemia, hypokalemia, hypercalcemia Admission Indicated Admission indicated?: indicated Admission Request Was there a request for admission?: Yes Admission Attestation Admission request attestation: Discussed case with [] from Hospitalist service regarding admission. Discussed patients ED course, exam findings, labs, and radiology results. The Hospitalist [agrees,declines] to accept the patient for admission. Disposition Plan Disposition Plan: Admit Discharge Plan Plan Patient Disposition: Admit Acute Care w/in Hospital Prescriptions/Referrals Prescriptions/Med Rec: No Action sennosides [Senna Lax] 8.6 mg Tablet 17.2 mg PO QDAY PRN (Reason: Constipation) Qty: 14 0RF Referrals: No Primary/Family,Physician [Primary Care Provider] - In 1 week Problem List Clinical Impression: Vomiting, Hypomagnesemia, Hypokalemia, Hypercalcemia Patient/Caregiver Discharge Instructions Print Language: Pashto Stand Alone Forms: Tamika Award Info., Patient Portal Info Letter
--- NOTE | 2025-06-07 16:25 | EDNOTE_ITS ---
Nausea/Vomit./Diarrhea-RME/HPI General Chief complaint: Nausea/Vomiting/Diarrhea Stated complaint: VOMITING X2 DAYS/ABD PAIN Time Seen by Provider: 06/07/25 14:44 Arrival date/time: 06/07/25 12:41 RME / HPI RME / HPI Narrative: 06/07/25 12:41 39-year-old male presents to the emergency department complaint of nausea vomiting abdominal pain DR. HICKS MAIN ED EVALUATION 39 year old male with history of pancreatitis in 2023, fatty liver disease, and hypertension (diagnosed 2 months ago) presents to the ED for evaluation of subjective fever, chills, nausea, nonbloody vomiting, and nonbloody diarrhea beginning 3 days ago. Accompanied by right lower abdominal pain beginning 2 days ago and a left-sided chest pulling sensation beginning this morning that is worse with movement. Denies any sick contacts. Exam: On exam patient appears to have pain Impression: Lab work imaging EKG obtained Related Data Previous Rx's ?Medication ?Instructions ?Recorded sennosides 8.6 mg tablet (Senna 17.2 mg (2 x 8.6 mg) P O QDAY PRN 10/12/23 Lax) Constipation #14 tabs Allergies Allergy/AdvReac Type Severity Reaction Status Date / Time No Known Allergies Allergy Verified 06/07/25 12:44 Review of Systems Review of Systems Systems Reviewed: All systems reviewed, normal except as documented Past Medical History Past Medical History CARDIAC: Positive Hypertension GASTROINTESTINAL: Positive Gastrointestinal Disorders and Pancreatitis Family History FAMILY HISTORY: Positive Family Cardiac Disorders Social History SMOKING STATUS: Never smoker SECOND HAND EXPOSURE: No SUBSTANCE USE: does not use ED Exam Narrative Physical exam: Constitutional: Awake, alert, nontoxic, no acute distress HEENT: Normocephalic, atraumatic, extraocular movements intact. Neck: Supple CV: Tachycardic, regular rhythm, no murmurs/rubs/gallops Lungs: Clear to auscultation BL, no respiratory distress. Abd: Soft, mild RLQ TTP, no rebound, no guarding, ND, no HSM noted to palpation Extremities: No deformities, no edema noted Neuro: AAOx3, CN 2-12 GIBL, no acute neuro deficit noted. Skin: Warm, dry, intact Course Course Course Narrative: 1724h: I spoke with hospitalist team C for admission. Quality Measures none Orders Category Date Time Status EKG (ED ONLY) *Do not use* NOW Care 06/07/25 13:[address] abdomen pelvis wo con Stat Exams 06/07/25 14:45 Completed EKG (ED Only) Stat Exams 06/07/25 13:09 Draft US gall bladder Stat Exams 06/07/25 14:45 Completed XR chest 2V Stat Exams 06/07/25 13:09 Completed Alcohol, Blood Medical Stat Lab 06/07/25 14:03 Completed B-Type Natriuretic Peptide Stat Lab 06/07/25 14:03 Completed CBC Stat Lab 06/07/25 14:03 Completed Comprehensive Metabolic Panel Stat Lab 06/07/25 14:03 Completed Drug Screen,Urine Stat Lab 06/07/25 13:55 Completed Lipase Stat Lab 06/07/25 14:03 Completed Magnesium Stat Lab 06/07/25 14:03 Completed Partial Thromboplastin Time Stat Lab 06/07/25 14:03 Completed Prothrombin Time with INR Stat Lab 06/07/25 14:03 Completed Troponin I Stat Lab 06/07/25 14:03 Completed Urinalysis, C/S if Indicated Stat Lab 06/07/25 13:55 Completed Famotidine [Pepcid] Med 06/07/25 13:08 Discontinued 40 mg PO X1 ONE Magnesium Sulfate 2 GM Ivpb [Magnesium Sulfate Ivpb] Med 06/07/25 16:38 Active 2 gm in 50 ml IV X1 Metoclopramide [Reglan] Med 06/07/25 13:08 Discontinued 10 mg PO X1 ONE POTASSIUM CHL 10 mEq IVPB [Kcl Ivpb] Med 06/07/25 16:39 Active 10 meq in 100 ml IV Q1H Sodium Chloride 0.9% 1000 ml [Ns] 2,000 ml Med 06/07/25 16:38 Active IV 999 mls/hr Vital Signs Vital signs: Vital Signs Temperature 98.8 F 06/07/25 12:59 Pulse Rate 109 H 06/07/25 12:59 Respiratory Rate 16 06/07/25 12:59 Blood Pressure 134/82 H 06/07/25 12:59 Pulse Oximetry (%) 100 06/07/25 12:59 Oxygen Delivery Method Room Air 06/07/25 12:59 Pulse ox is 100% on room air which is adequate. Nausea/Vomiting/Diarrhea MDM Narrative MDM Narrative:: 39-year-old male coming in for evaluation of nausea, vomiting, diarrhea with abdominal pain. Noted to have significant abnormalities on labs including hypomagnesemia with magnesium of 1.1, hypokalemia 3.1, hypercalcemia of 12. Imaging unremarkable. IV fluids ordered given dehydration and ordered electrolyte replacement as well. Discussed with hospitalist team for observation admission. Accepted. Liza Blum, am scribing for and in the presence of Dr. Hicks. Patient data External records reviewed:: [facility] previous records Clinical information provided by:: patient Social determinants that could affect healthcare access:: alcohol use Patient has the following chronic illnesses:: pancreatitis in 2023, fatty liver disease, and hypertension (diagnosed 2 months ago) How is presenting disease/condition affected by chronic disease/condition?: exacerbated by Evaluation data The following diagnostics were reviewed and interpreted by me:: lab results, radiology exam(s) and EKG tracing(s) (EKG @ 13:21h, sinus tachycardia, rate 112, no STEMI. ) Lab and/or radiology exams considered but not ordered:: None Interpretation Summary: Ordering Physician: Gildardo Mccarty NP, NP Date of Service: 06/07/25 Procedure(s): XR chest 2V Accession Number(s): [id number] cc: Lul OCHOA)Gildardo NP; Indio Khalil MD~ EXAMINATION: PA lateral chest 2 views TECHNIQUE: Upright PA lateral chest 2 views Date and time: June 07, 2025, 1311 hours INDICATIONS: Chest tightness beginning 2 days ago FINDINGS: Normal heart size The lungs are clear. The osseous structures are intact IMPRESSION: No active disease Dictated By: Indio Khalil MD Signed By: <Electronically signed by Indio Khalil MD in OV> 06/07/25 1340 ======= Ordering Physician: Gildardo Mccarty NP, NP Date of Service: 06/07/25 Procedure(s): CT abdomen pelvis wo con Accession Number(s): [id number] cc: Gildardo Mccarty NP, NP; Indio Khalil MD; NO PRIMARY/FAMILY,PHYSICIAN~ Examination: CT abdomen and pelvis without contrast. Coronal 3-D reconstructions. Sagittal 2-D reconstructions. Date and time of exam: June 07, 2025, 1617 hours, comparison October 07, 2023 INDICATIONS: Severe generalized abdominal pain with nausea today, history acute pancreatitis 2023 CTDI: vol (mGy): 6.91 DLP: (mGycm): 427 Technique: Axial images of the abdomen have been obtained, 3 mm slice thickness Intravenous contrast material has not been administered. Low dose protocols were performed. One or more of the following dose reduction techniques were used; automated exposure control, adjustment of the mA and/or KV according to patient size, use of iterative reconstruction technique. Findings: Severe diffuse fatty infiltration throughout the liver No definite gallstones Spleen is not enlarged No current peripancreatic edema Normal adrenal glands Perinephric stranding Mild renal scar formation Aorta normal size No bowel obstruction Normal appendix No diverticulitis Normal seminal vesicles No prostatomegaly Contracted urinary bladder with mild urinary bladder wall thickening up to 6 mm, no bladder calculi Mild osteopenia Small fat-containing right inguinal hernia IMPRESSION: Severe diffuse fatty infiltration throughout the liver No current pancreatitis No renal or ureteral calculi Normal appendix No bowel obstruction diverticulitis or free air Dictated By: Indio Khalil MD Signed By: <Electronically signed by Indio Khalil MD in OV> 06/07/25 1633 Ordering Physician: Gildardo Mccarty NP, NP Date of Service: 06/07/25 Procedure(s): US gall bladder Accession Number(s): [id number] cc: Gildardo Mccarty NP, NP; Indio Khalil MD; NO PRIMARY/FAMILY,PHYSICIAN~ Examination: Abdomen sonogram, Limited Date and time of exam: June 07, 2025, 1452 hours INDICATIONS: Right upper abdominal pain nausea vomiting beginning 3 days ago Technique: Real-time mccauley scale transabdominal sonographic images of the upper abdomen obtained. Findings: Normal gallbladder Normal common bile duct 0.3 cm Pancreatic head 2.6 cm Liver 16.4 cm fatty infiltration Normal hepatopetal portal venous flow Patent IVC IMPRESSION: Normal gallbladder Normal common bile duct Dictated By: Indio Khalil MD Signed By: <Electronically signed by Indio Khalil MD in OV> 06/07/25 1535 Medications / Prescriptions Medications / Prescriptions considered but not ordered:: None Medication administrations:: Medication Administration History Sodium Chloride (Ns) 2,000 mls @ 999 mls/hr IV .Q2H1M ONE Stop: 06/07/25 18:38 Magnesium Sulfate (Magnesium Sulfate Ivpb) 2 gm in 50 mls @ 25 mls/hr IV X1 ONE Stop: 06/07/25 18:37 Potassium Chloride (Kcl Ivpb) 10 meq in 100 mls @ 100 mls/hr IV Q1H GUZMAN Stop: 06/07/25 18:38 Discontinued Medications Famotidine (Famotidine 20 Mg Tablet) 40 mg PO X1 ONE Stop: 06/07/25 13:09 Last Admin: 06/07/25 13:19 Dose: 40 mg Documented By: OA Metoclopramide HCl (Metoclopramide 5 Mg Tablet) 10 mg PO X1 ONE Stop: 06/07/25 13:09 Last Admin: 06/07/25 13:19 Dose: 10 mg Documented By: OA See above Consultations Consultation(s) initiated? (list below): Yes Consultation #1 (Physician, Specialty, Details): See above Diagnosis Nausea Differential Diagnosis: gastroenteritis, clostridium difficile infection, drug-induced nausea and vomiting and dehydration Most likely diagnosis given after review of the tests above:: Dehydration, hypomagnesemia, hypokalemia, hypercalcemia, gastroenteritis. Admission Indicated Admission indicated?: indicated Admission Request Was there a request for admission?: Yes Admission Attestation Admission request attestation: Discussed case with [] from Hospitalist service regarding admission. Discussed patients ED course, exam findings, labs, and radiology results. The Hospitalist [agrees,declines] to accept the patient for admission. Disposition Plan Disposition Plan: Admit Discharge Plan Plan Patient Disposition: Admit Acute Care w/in Hospital Prescriptions/Referrals Prescriptions/Med Rec: No Action sennosides [Senna Lax] 8.6 mg Tablet 17.2 mg PO QDAY PRN (Reason: Constipation) Qty: 14 0RF Referrals: No Primary/Family,Physician [Primary Care Provider] - In 1 week Problem List Clinical Impression: Hypomagnesemia, Hypokalemia, Hypercalcemia, Gastroenteritis Patient/Caregiver Discharge Instructions Print Language: Micronesian Stand Alone Forms: Tamika Award Info., Patient Portal Info Letter
--- NOTE | 2025-06-07 18:36 | ESHP_ITS ---
Documentation for date of: 06/07/25 [facility] History of Present Illness History of present illness: Gaurav Anthony is a 39-year-old male with a past medical history of hypertension who presents with intractable nausea and vomiting. Patient states symptom started approximately 3 days ago, acute onset in nature, are nonbloody, and occurs when he eats and when he does not eat and cannot hold down solids or liquids. Associated abdominal pain and 4 episodes of nonbloody diarrhea on the first day of symptoms and continues to have diarrhea but only 1 episode today. Does not recall eating in any restaurants or buffets and has had no sick contacts. Now endorsing some chest discomfort. Symptoms have never happened before. In the ED, initial vitals showed pulse of 109 but otherwise vital signs stable CBC unremarkable. CHEM panel showed electrolyte derangements including K of 3.1, chloride 87, bicarb 32, AG 17 calcium 12, magnesium 1.1 T. bili is 1 point, AST/ALT 170/228, negative troponins. U tox positive for opiates. CT A/P showing severe, diffuse fatty infiltration throughout liver but otherwise unremarkable. Gallbladder ultrasound unremarkable. EKG showing sinus tachycardia with ST depressions in leads 4, 5, 6. Admitted for intractable nausea/vomiting with electrolyte derangements. 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, tobacco, and illicit drug use PSHx: No cardiac or intra-abdominal surgeries Review of Systems Review of Systems Systems Reviewed: All systems reviewed, normal except as documented Exam Vital Signs Temp Pulse Resp BP Pulse Ox O2 Del Method 98.8 F 109 H 16 134/82 H 100 Room Air 06/07/25 12:59 06/07/25 12:59 06/07/25 12:59 06/07/25 12:59 06/07/25 12:59 06/07/25 12:59 Narrative Exam General: AOx3, no acute distress, able to speak full sentences HEENT: NC/AT, mucous membranes moist, bilateral sclera anicteric Cardiovascular: regular rate and rhythm, S1/S2 present, no murmurs appreciated Pulmonary: clear to auscultation bilaterally, no rales/rhonchi/wheezes Abdominal: soft, tender to palpation, non-distended, no rebound/guarding, normal bowel sounds present Musculoskeletal: normal ROM, no peripheral edema Skin: warm and dry, intact, no rashes Neuro: CN II-XII intact, no focal deficits Results: Labs 06/08/25 05:27 06/08/25 05:27 Labs: Short CBC 06/07/25 Range/Units 14:03 WBC 10.3 (3.8-10.6) Thou/mm3 Hgb 16.0 (13.5-16.0) g/dL Hct 46.7 (41.0-53.0) % Plt Count 358 (140-440) Thou/mm3 BMP 06/07/25 14:03 Sodium 136 Potassium 3.1 L Chloride 87 L Carbon Dioxide 31.9 H BUN 13 Creatinine 1.3 Glucose 101 Calcium 12.0 H Cardiac Enzymes 06/07/25 Range/Units 14:03 Troponin I < 0.002 (0.0-0.045) ng/mL Liver Function 06/07/25 Range/Units 14:03 Total Bilirubin 1.9 H (0.3-1.2) mg/dL AST 117 H (0-34) U/L ALT 228 H (10-49) U/L Alkaline Phosphatase 69 (46-116) U/L Albumin 5.5 H (3.5-5.0) gm/dL Urine 06/07/25 Range/Units 13:55 Urine Color Yellow (Lt Yel-Yel) Urine Clarity Hazy (Clear/Hazy) Urine pH 6.5 (5.0-7.0) Ur Specific [place] 1.029 (1.001-1.035) Urine Protein 1+ A (Neg - Trace) Urine Glucose (UA) Negative (Negative) Quality Measures Quality Measures none Medications Home Medications and Allergies Allergies Allergy/AdvReac Type Severity Reaction Status Date / Time No Known Allergies Allergy Verified 06/07/25 12:44 Visit Medications Sodium Chloride (Ns) 2,000 mls @ 999 mls/hr IV .Q2H1M ONE Stop: 06/07/25 18:38 Magnesium Sulfate (Magnesium Sulfate Ivpb) 2 gm in 50 mls @ 25 mls/hr IV X1 ONE Stop: 06/07/25 18:37 Potassium Chloride (Kcl Ivpb) 10 meq in 100 mls @ 100 mls/hr IV Q1H GUZMAN Stop: 06/07/25 18:38 Discontinued Medications Famotidine (Famotidine 20 Mg Tablet) 40 mg PO X1 ONE Stop: 06/07/25 13:09 Last Admin: 06/07/25 13:19 Dose: 40 mg Metoclopramide HCl (Metoclopramide 5 Mg Tablet) 10 mg PO X1 ONE Stop: 06/07/25 13:09 Last Admin: 06/07/25 13:19 Dose: 10 mg Assessment & Plan Plan Gaurav Anthony is a 39-year-old male with a past medical history of hypertension who is admitted for intractable nausea/vomiting with electrolyte derangements. #Intractable nausea/vomiting #Sinus tachycardia #Contraction alkalosis #Hypochloremia Presents with 3 days of intractable nausea and vomiting. Cannot hold down solids or liquids. Pulse of 109. Labs show likely contraction alkalosis with bicarb of 32 and hypochloremia of 87. ? GI consulted, appreciate recommendations ? Reglan as needed every 6 hours ? NS at 80 cc/h #Electrolyte derangements #Hypokalemia #Hypomagnesemia #Hypercalcemia ? Follow-up labs and replete as needed ? Monitor for signs of refeeding syndrome ? AM phosphorus #Transaminitis #Hyperbilirubinemia #Hepatosteatosis CT A/P showing severe and diffuse fatty infiltration throughout liver. Gallbladder ultrasound unremarkable. ? Continue to monitor Hospital management: Disposition: pending GI recs Fluids: NS at 80 cc/hr Diet: regular Lines: PIV DVT prophylaxis: SCD GI prophylaxis: PPI CODE STATUS: full code ----- Plan discussed with attending physician Dr. Fahad Galindo MD PGY-2 Internal Medicine Attending Provider Attestation/Addendum I have examined the patient, reviewed labs and imaging findings, discussed the case with the resident(s), and reviewed entered orders. I agree with the plan of care as outlined in this note, with these additional summaries/recommendations: After examination of the patient and review of the clinical data, I feel that this patient needs admission to the hospital for further treatment and evaluation. Dr. Fahad MD
[2025-06-07] MEDS: SODIUM CHLORIDE 0.9% 1000 ML 2,000 ML 999 ML IV (21:22)
[2025-06-07 21:42] VITALS: BMI 28.7
--- NOTE | 2025-06-07 21:48 | PC.NURSE ---
report called to Debbi LOPEZ. pt taken to rm [id number]
[2025-06-07] MEDS: SODIUM CHLORIDE 0.9% 1000 ML 1,000 ML 80 ML IV (22:18)
[2025-06-07] MEDS: POTASSIUM CHL 10 mEq IVPB 10 MEQ/100 ML BAG 100 MEQ IV (22:26)
[2025-06-07] MEDS: Magnesium Sulfate 2 GM Ivpb 2 GM/50 ML BAG IV (22:30)
--- NOTE | 2025-06-07 22:38 | PC.NURSE ---
MEd rec not completed.Pt will ask family memeber to bring meds from home.
[2025-06-07] MEDS: ACETAMINOPHEN 325 MG TABLET 650 MG PO (22:57)
[2025-06-07] MEDS: POTASSIUM CHL 10 mEq IVPB 10 MEQ/100 ML BAG 75 MEQ IV (23:37)
[2025-06-08] VITALS: BP 128/79; PULSE 88; RESP 17; TEMP 36.7; O2SAT 98
[2025-06-08] MEDS: Magnesium Sulfate 4 GM Ivpb 4 GM/50 ML BAG IV (00:19)
[2025-06-08] MEDS: POTASSIUM CHL 10 mEq IVPB 10 MEQ/100 ML BAG 75 MEQ IV ×3 (01:04→04:11)
[2025-06-08 04:00] VITALS: BP 115/72; PULSE 80; RESP 17; TEMP 36.3; O2SAT 97
[2025-06-08] MEDS: HYDROcodone/APAP 5/325 TABLET 1 TAB PO ×2 (04:58→19:37)
[2025-06-08 06:06] LABS: Basophils # (Auto) 0.0 Thou/mm3 (0.0-0.2); Basophils % (Auto) 1 % (0-2.5); Eosinophils # (Auto) 0.1 Thou/mm3 (0.0-0.5); Eosinophils % (Auto) 2 % (0-10); Hematocrit 40.0 % (41.0-53.0); Hemoglobin 13.4 g/dL (13.5-16.0); Immature Granulocytes Auto 0.02 Thou/mm3 (0.00-0.00); Lymphocytes # (Auto) 1.7 Thou/mm3 (1.0-4.8); Lymphocytes % (Auto) 25 % (10-50); Mean Corpuscular HGB Conc 33.5 g/dl (31.0-37.0); Mean Corpuscular Hemoglobin 28.2 pg (25.0-35.0); Mean Corpuscular Volume 84 fL (80-100); Monocytes # (Auto) 0.7 Thou/mm3 (0.0-0.8); Monocytes % (Auto) 11 % (0-12); Neutrophils # (Auto) 4.2 Thou/mm3 (1.8-7.7); Neutrophils % (Auto) 62 % (37-80); Nucleated Red Blood Cell # 0.00 Thou/mm3 (0.00-0.00); Nucleated Red Blood Cell % 0 /100 WBC (0); Platelet Count 252 Thou/mm3 (140-440); RDW Standard Deviation 47.5 fL (35.1-43.9); Red Blood Count 4.75 Miln/mm3 (4.50-5.90); White Blood Count 6.8 Thou/mm3 (3.8-10.6)
[2025-06-08 06:39] LABS: Alanine Aminotransferase 161 U/L (10-49); Albumin, Serum 4.3 gm/dL (3.5-5.0); Albumin/Globulin Ratio 1.6 (1.2-2.2); Alkaline Phosphatase 53 U/L (46-116); Anion Gap 12 (7-16); Aspartate Amino Transferase 101 U/L (0-34); BUN/Creatinine Ratio 13 Ratio (12-20); Bilirubin,Total 1.5 mg/dL (0.3-1.2); Blood Urea Nitrogen 13 mg/dL (9-23); Calcium 9.2 mg/dL (8.3-10.6); Calcium (Corrected) 9.2 mg/dL (8.5-10.1); Carbon Dioxide 30.5 mMol/L (20.0-31.0); Cardiac Risk Estimate 2.4 RATIO (4.0-6.7); Chloride 94 mMol/L (98-107); Cholesterol 186 mg/dL (132-200); Creatinine (Component) 1.0 mg/dL (0.6-1.3); Estimated Creatinine Clearance 111.2 mL/min (>60); Globulin 2.7 gm/dL (2.3-3.5); Glucose 84 mg/dL (74-106); HDL Cholesterol 78 mg/dL (40-60); LDL Cholesterol,Calculated 80 mg/dL (0-130); Magnesium 2.3 mg/dL (1.6-2.6); Osmolality,Calculated 271 (275-295); Phosphorous 2.7 mg/dL (2.4-5.1); Potassium 3.2 mMol/L (3.4-5.1); Sodium 136 mMol/L (136-145); Thyroid Stimulating Hormone 2.07 uIU/mL (0.55-4.78); Total Protein 7.0 gm/dL (5.7-8.2); Triglycerides 139 mg/dL (30-150); eGFR > 60 See Note
[2025-06-08 08:00] VITALS: BP 121/85; PULSE 72; RESP 18; TEMP 36.2; O2SAT 98
[2025-06-08 09:31] VITALS: BMI 28.6
[2025-06-08] MEDS: ACETAMINOPHEN 325 MG TABLET 650 MG PO (09:32)
[2025-06-08] MEDS: SODIUM CHLORIDE 0.9% 1000 ML 1,000 ML 80 ML IV ×2 (09:38→23:07)
[2025-06-08 12:00] VITALS: BP 137/83; PULSE 73; RESP 18; TEMP 36.7; O2SAT 95
[2025-06-08 12:02] LABS: Hepatitis A Antibody IgM Non Reactive (Non React); Hepatitis B Core Antibody IgM Non Reactive (Non React); Hepatitis B Surface Antigen Non Reactive (Non React); Hepatitis C Antibody Non Reactive (Non React)
--- NOTE | 2025-06-08 13:33 | ESPR_ITS ---
<Statement entered by Jose David Foley MD - 06/08/25 16:24> Patient was seen and examined at bedside. His potassium today is 3.2. He reported very significant improvement of his nausea and vomiting. His serum AST and ALT are downtrending, we will screen the patient for acute hepatitis to rule out acute hepatitis A it was negative however given the patient's early symptoms still a potential cause of his right upper quadrant pain, elevated liver enzymes, and GI symptoms. On further questioning patient reported that he has history of chemical exposure as he works in [employer]. He reported that sometimes he uses chemical mask sometimes he does not. Will continue to monitor patient for today anticipated discharge in the next 24 to 48 hours. - Patient's plan and care discussed with my attending, Dr. Fahad Foley MD Internal Medicine PGY-3 Documentation for date of: 06/08/25 Subjective Subjective Interval history: No acute events overnight. The patient was seen and examined at the bedside today. The patient is saturating well on room air and reports being able to tolerate applesauce and grapes. Efforts are being made to advance to a regular diet as tolerated. The patient continues to report epigastric and right upper quadrant pain, described as sharp and intermittent, with an intensity of 6/7 out of 10 unchanged postpandrially. For pain control, added taking Peck p.o. The patient has a history of chemical exposure from working in [employer]. Lab results show a downward trend in serum AST and ALT levels. Acute hepatitis screening was performed, including testing for hepatitis A, which returned negative. However, given the patient's early symptoms, there is still concern that hepatitis could be contributing to the right upper quadrant pain, elevated liver enzymes, and GI symptoms. CBC revealed a drop in hemoglobin (13.4) and hematocrit (40), and urinalysis showed 7 RBCs, raising concern for a possible GI bleed. Per GI's recommendation, the patient is to remain NPO after midnight, with an EGD scheduled for tomorrow. Exam Vital Signs Temp Pulse Resp BP Pulse Ox O2 Del Method 97.1 F 72 18 121/85 H 98 Room Air 06/08/25 08:00 06/08/25 08:00 06/08/25 08:00 06/08/25 08:00 06/08/25 08:00 06/08/25 04:00 Narrative Exam General: Alert, no acute distress.Conversational and non-toxic appearing. Skin: Warm, dry, intact. No rash or ecchymoses. Head: Normocephalic, atraumatic. Eye: Normal conjunctiva, PERRL. Throat: Oral mucosa moist. No obvious lesions in oropharynx. Cardiovascular: Regular rate and rhythm, no murmur, +S1/S2. Respiratory: Lungs are clear to auscultation, respirations unlabored, no crackles, no wheezing. Gastrointestinal: Soft, tenderness right quadrant, mildy distended. No guarding or rebound tenderness. Extremities: No edema, no cyanosis, no clubbing. Neuro: Alert and oriented x3.No focal deficits observed. Conversant, moving all extremities. No overt cerebellar signs/incoordination. Psychiatric: Cooperative, appropriate affect Objective Labs 06/09/25 05:27 06/09/25 05:27 Labs: Laboratory Results - last 24 hr 06/07/25 06/07/25 06/08/25 13:55 14:03 05:27 WBC 10.3 6.8 RBC 5.67 4.75 Hgb 16.0 13.4 L D Hct 46.7 40.0 L MCV 82 84 MCH 28.2 28.2 MCHC 34.3 33.5 RDW Std Deviation 47.0 H 47.5 H Plt Count 358 252 D Neut % (Auto) 71 62 Lymph % (Auto) 19 25 [place] % (Auto) 8 11 Eos % (Auto) 1 2 Baso % (Auto) 0 1 Neut # (Auto) 7.3 4.2 Lymph # (Auto) 2.0 1.7 [place] # (Auto) 0.9 H 0.7 Eos # (Auto) 0.1 0.1 Baso # (Auto) 0.0 0.0 Immature Gran # (Auto) 0.04 H 0.02 H Absolute Nucleated RBC 0.00 0.00 Immature Gran % 0 0 Nucleated RBC % 0 0 PT 11.5 INR 1.1 APTT 24.9 Sodium 136 136 Potassium 3.1 L 3.2 L Chloride 87 L 94 L Carbon Dioxide 31.9 H 30.5 Anion Gap 17 H 12 BUN 13 13 Creatinine 1.3 1.0 Estim Creat Clear Calc 85.6 111.2 eGFR > 60 > 60 BUN/Creatinine Ratio 10 L 13 Glucose 101 84 Calculated Osmolality 272 L 271 L Calcium 12.0 H 9.2 D Corrected Calcium 12.0 H 9.2 D Phosphorus 2.7 Magnesium 1.1 L 2.3 Total Bilirubin 1.9 H 1.5 H AST 117 H 101 H ALT 228 H 161 H Alkaline Phosphatase 69 53 D Troponin I < 0.002 B-Natriuretic Peptide < 20 Total Protein 8.9 H 7.0 Albumin 5.5 H 4.3 D Globulin 3.4 2.7 Albumin/Globulin Ratio 1.6 1.6 Triglycerides 139 Cholesterol 186 LDL Cholesterol, Calc 80 HDL Cholesterol 78 H Cholesterol/HDL Ratio 2.4 L Lipase 40 TSH 2.07 Ur Collection Type Clean Catch Urine Color Yellow Urine Clarity Hazy Urine pH 6.5 Ur Specific Thompson 1.029 Urine Protein 1+ A Urine Glucose (UA) Negative Urine Ketones 3+ A Urine Blood Negative Urine Nitrite Negative Urine Bilirubin 1+ A Urine Urobilinogen (Auto) 2.0 Ur Leukocyte Esterase Negative Urine RBC 7 H Urine WBC 4 Ur Squamous Epith Cells < 1 Urine Bacteria None Hyaline Casts 1 Ur Culture Indicated? Not Indicated Urine Opiates Screen Positive A Urine Fentanyl Screen Negative Ur Barbiturates Screen Negative U Amphetamin/Meth Scrn Negative U Benzodiazepines Scrn Negative U Cocaine Metab Screen Negative U Marijuana (THC) Screen Negative Ethyl Alcohol < 3.0 Hepatitis A IgM Ab Non Reactive Hep Bs Antigen Non Reactive Hep B Core IgM Ab Non Reactive Hepatitis C Antibody Non Reactive Quality Measures Quality Measures none Assessment & Plan Assessment Current Active Medications: Generic Name Dose Route Start Last Admin Trade Name Freq PRN Reason Stop Dose Admin Acetaminophen 650 mg 06/07/25 18:32 06/08/25 09:32 Acetaminophen 325 Mg Tablet PO 07/07/25 18:31 650 mg Q6H PRN Administration PAIN OR FEVER > 100.4 Protocol Hydrocodone Bitart/Acetaminophen 1 tab 06/08/25 10:32 Hydrocodone/Apap 5/325 Tablet PO 06/13/25 10:31 Q6HR PRN PAIN 4-10 Sodium Chloride 1,000 mls @ 80 mls/hr 06/07/25 18:45 06/08/25 09:38 Ns IV 07/07/25 18:44 80 mls/hr .[id number] GUZMAN Administration Metoclopramide HCl 10 mg 06/07/25 18:32 06/07/25 20:05 Metoclopramide 5 Mg Tablet PO 07/07/25 18:31 10 mg Q6H PRN Administration NAUSEA OR VOMITING Pantoprazole Sodium 40 mg 06/08/25 09:00 06/08/25 09:32 Pantoprazole Inj 40 Mg Vial IVP 07/08/25 08:59 40 mg QDAY GUZMAN Administration Plan Gaurav Anthony is a 39-year-old male with a past medical history of hypertension who is admitted for intractable nausea/vomiting with electrolyte derangements. #GI bleed #Intractable nausea/vomiting(resolving) #Contraction alkalosis (resolve) #Hypochloremia(resolving) DDX: Gastroenteritis versus biliary dyskinesia versus dyspepsia versus gastritis vs toxins Presents with 3 days of intractable nausea and vomiting. Initially couldn't hold down solids or liquids, now able to to Pulse of 109. Labs show likely contraction alkalosis with bicarb of 32 and hypochloremia of 87. Significant alcohol use in the past, now drinks occasionally. Patient reports 1 episode of coffee-ground emesis hemoglobin dropped from 16 to 13.4 overnight urinalysis showed 7 RBCs, raising concern for a possible GI bleed. Plan ? GI consulted, appreciate recommendations- n.p.o. after midnight, EGD planned for tomorrow - Protonix 40 mg IV twice daily ? Reglan as needed every 6 hours ? NS at 80 cc/h #Electrolyte derangements #Hypokalemia (resolving) #Hypomagnesemia (resolve) #Hypercalcemia (resolve) ? Follow-up labs and replete as needed ? Monitor for signs of refeeding syndrome ? AM phosphorus #Transaminitis (resolving) #Hyperbilirubinemia(resolving) #Hepatosteatosis Acute hepatitis screening was negative. However, given the patient's early symptoms, there is still concern that hepatitis could be contributing to the right upper quadrant pain, elevated liver enzymes, and GI symptoms. -CT A/P showing severe and diffuse fatty infiltration throughout liver. Gallbladder ultrasound unremarkable. -Hepatitis panel negative ? Continue to monitor #Sinus tachycardia (resolve) Hospital management: Lines: peripheral IV Diet: regular GI prophylaxis: PPI DVT prophylaxis: SCD Disposition: EGD planned for tomorrow CODE STATUS: Full code Patient assessed under supervision of attending physician and senior resident Dr. Foley PGY-3 Clau Walden MD PGY-1, Internal Medicine Please note: this document was transcribed using voice recognition technology; minor inaccuracies may be present. Attending Provider Attestation/Addendum I have examined the patient, reviewed labs and imaging findings, discussed the case with the resident(s), and reviewed entered orders. I agree with the plan of care as outlined in this note. Dr. Fahad MD
--- NOTE | 2025-06-08 15:03 | PD.RESCONSUL ---
HPI Data of Consult Requesting Physician: Avtar Vásquez MD Admitting Provider: Avtar Vásquez MD Attending Provider: Avtar Vásquez MD Primary Care Provider: Physician No Primary/Family Consult Narrative History of present illness: 39-year-old male with a history of hypertension presenting with 3 days of intractable nausea and vomiting, acute in onset, with inability to tolerate solids or liquids. Associated with abdominal pain and 4 episodes of nonbloody diarrhea on day 1, which resolved by day 3, on day 2 & 3 had hematemesis that has since resolved. The patient denies recent travel, restaurant/buffet exposures, or sick contacts. No prior history of cancer, endoscopies, or colonoscopies. No significant weight loss or changes in bowel habits; the last bowel movement was several days ago. Mild right lower quadrant pain noted, with a history of medically managed appendicitis years ago. Patient now is able to tolerate solids and liquids tolerated breakfast and lunch today. Past medical history: As stated above. Past surgical history: No GI surgery in the past. Allergies: NKDA Family history: Noncontributory. No family history of cancer. Social history: Occasional alcohol use now, however had extensive alcohol history with 30 packs a day for few years, no smoking, no illicit drug use. GI consulted for evaluation of potential upper GI bleed. cc:: cc: Avtar Vásquez MD Review of Systems Review of Systems Systems Reviewed: All systems reviewed, normal except as documented Exam Vital Signs Temp Pulse Resp BP Pulse Ox O2 Del Method 98.0 F 73 18 137/83 H 95 Room Air 06/08/25 12:00 06/08/25 12:00 06/08/25 12:00 06/08/25 12:00 06/08/25 12:00 06/08/25 12:00 Narrative Exam General: AOx3, no acute distress, able to speak full sentences HEENT: NC/AT, mucous membranes moist, bilateral sclera anicteric Cardiovascular: regular rate and rhythm, S1/S2 present, no murmurs appreciated Pulmonary: clear to auscultation bilaterally, no rales/rhonchi/wheezes Abdominal: soft, tenderness right lower quadrant, distended, no rebound/guarding, normal bowel sounds present Musculoskeletal: normal ROM, no peripheral edema Skin: warm and dry, intact, no rashes, Neuro: CN II-XII intact, no focal deficits Results Labs 06/10/25 04:58 06/10/25 04:58 Labs: Short CBC 06/08/25 Range/Units 05:27 WBC 6.8 (3.8-10.6) Thou/mm3 Hgb 13.4 L D (13.5-16.0) g/dL Hct 40.0 L (41.0-53.0) % Plt Count 252 D (140-440) Thou/mm3 BMP 06/08/25 05:27 Sodium 136 Potassium 3.2 L Chloride 94 L Carbon Dioxide 30.5 BUN 13 Creatinine 1.0 Glucose 84 Calcium 9.2 D Liver Function 06/08/25 Range/Units 05:27 Total Bilirubin 1.5 H (0.3-1.2) mg/dL AST 101 H (0-34) U/L ALT 161 H (10-49) U/L Alkaline Phosphatase 53 D (46-116) U/L Albumin 4.3 D (3.5-5.0) gm/dL Quality Measures Quality Measures none Medications Home Medications and Allergies Home Medications ?Medication ?Instructions ?Recorded ?Confirmed ?Type losartan potassium 50 mg PO QDAY hypertension 06/08/25 06/08/25 History Allergies Allergy/AdvReac Type Severity Reaction Status Date / Time No Known Allergies Allergy Verified 06/07/25 12:44 Visit Medications Acetaminophen (Acetaminophen 325 Mg Tablet) 650 mg PO Q6H PRN; Protocol PRN Reason: PAIN OR FEVER > 100.4 Stop: 07/07/25 18:31 Last Admin: 06/08/25 09:32 Dose: 650 mg Hydrocodone Bitart/Acetaminophen (Hydrocodone/Apap 5/325 Tablet) 1 tab PO Q6HR PRN PRN Reason: PAIN 4-10 Stop: 06/13/25 10:31 Sodium Chloride (Ns) 1,000 mls @ 80 mls/hr IV .[id number] GUZMAN Stop: 07/07/25 18:44 Last Admin: 06/08/25 09:38 Dose: 80 mls/hr Metoclopramide HCl (Metoclopramide 5 Mg Tablet) 10 mg PO Q6H PRN PRN Reason: NAUSEA OR VOMITING Stop: 07/07/25 18:31 Last Admin: 06/07/25 20:05 Dose: 10 mg Pantoprazole Sodium (Pantoprazole Inj 40 Mg Vial) 40 mg IVP QDAY [facility] Stop: 07/08/25 08:59 Last Admin: 06/08/25 09:32 Dose: 40 mg Discontinued Medications Acetaminophen (Acetaminophen 325 Mg Tablet) 650 mg PO X1 ONE Stop: 06/07/25 22:49 Last Admin: 06/07/25 22:57 Dose: 650 mg Hydrocodone Bitart/Acetaminophen (Hydrocodone/Apap 5/325 Tablet) 1 tab PO X1 ONE Stop: 06/08/25 04:46 Last Admin: 06/08/25 04:58 Dose: 1 tab Famotidine (Famotidine 20 Mg Tablet) 40 mg PO X1 ONE Stop: 06/07/25 13:09 Last Admin: 06/07/25 13:19 Dose: 40 mg Sodium Chloride (Ns) 2,000 mls @ 999 mls/hr IV .Q2H1M ONE Stop: 06/07/25 18:38 Last Admin: 06/07/25 21:22 Dose: 999 mls/hr Magnesium Sulfate (Magnesium Sulfate Ivpb) 2 gm in 50 mls @ 25 mls/hr IV X1 ONE Stop: 06/07/25 18:37 Last Admin: 06/07/25 22:30 Dose: 25 mls/hr Potassium Chloride (Kcl Ivpb) 10 meq in 100 mls @ 100 mls/hr IV Q1H [facility] Stop: 06/07/25 18:38 Last Admin: 06/07/25 22:21 Dose: Not Given Potassium Chloride (Kcl Ivpb) 10 meq in 100 mls @ 100 mls/hr IV Q1H [facility] Stop: 06/08/25 00:42 Last Admin: 06/08/25 06:30 Dose: Not Given Magnesium Sulfate (Magnesium Sulfate Ivpb) 4 gm in 50 mls @ 12.5 mls/hr IV X1 ONE Stop: 06/07/25 22:42 Last Admin: 06/08/25 00:19 Dose: 12.5 mls/hr Metoclopramide HCl (Metoclopramide 5 Mg Tablet) 10 mg PO X1 ONE Stop: 06/07/25 13:09 Last Admin: 06/07/25 13:19 Dose: 10 mg Potassium Chloride (Potassium Chloride 20 Meq Tabcr) 20 meq PO X1 ONE Stop: 06/08/25 06:43 Last Admin: 06/08/25 07:04 Dose: 20 meq Potassium Chloride (Potassium Chloride 20 Meq Tabcr) 40 meq PO X1 ONE Stop: 06/08/25 08:21 Last Admin: 06/08/25 13:19 Dose: Not Given Potassium Chloride (Potassium Chloride 20 Meq Tabcr) 20 meq PO X1 ONE Stop: 06/08/25 09:21 Last Admin: 06/08/25 09:32 Dose: 20 meq Assessment & Plan Plan 39-year-old male with a past medical history of hypertension who is admitted for intractable nausea/vomiting with electrolyte derangements. GI consulted for evaluation of possible upper GI bleed. #Upper GI bleed workup #Intractable nausea/vomiting, resolved Presents with 3 days of intractable nausea and vomiting. Has now since resolved and tolerating solids and liquids. Hematemesis on 2nd and 3rd day. Hemoglobin dropped from 16 to 13.4 overnight No thrombocytopenia No coagulopathy Significant alcohol use in the past, now drinks occasionally No significant use of NSAIDs No personal or family history of cancer No weight loss noted Mild abdominal pain in the right lower quadrant Hemodynamically stable, not requiring oxygen Plan: ?N.p.o. from midnight ?Protonix 40 mg IV twice daily ?Continue Reglan as needed every 6 hours ?EGD planned for tomorrow -Keep hgb >7 Ongoing issues managed by the primary team: #Electrolyte derangements #Hypokalemia #Hypomagnesemia #Hypercalcemia #Transaminitis #Hyperbilirubinemia #Hepatosteatosis Thank you for the consult. We will continue to follow the patient. Case discussed with my attending Dr. Alonso Aly MD PGY-1 Attending Provider Attestation/Addendum Patient evaluated Laboratory data and imaging studies reviewed Plan is to schedule the patient for a fiberoptic esophagogastroduodenoscopy with possible biopsy possible therapeutic intervention for tomorrow morning N.p.o. midnight tonight Will follow the patient Thank you very much for the opportunity to participate in the care of this patient
--- NOTE | 2025-06-08 15:32 | PC.SS ---
Patient is alert/oriented. Patient was able to verify demographics. Patient is independent with ADL's. PCP: [facility]. Pharmacy: [facility]. Patient resides with his . Patient will return home. Pending GI consult. D/c home tomorow. 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
[2025-06-08 16:00] VITALS: BP 123/72; PULSE 77; RESP 18; TEMP 36.4; O2SAT 97
[2025-06-08 20:00] VITALS: BP 129/90; PULSE 96; RESP 18; TEMP 36.7; O2SAT 99
[2025-06-09] VITALS (15 sets, daily range): BP systolic 122–174; BP diastolic 82–101; PULSE 67–90; RESP 12–18; TEMP 36.1–37.2; O2SAT 96–100
[2025-06-09] MEDS: HYDROcodone/APAP 5/325 TABLET 1 TAB PO ×2 (04:45→20:33)
[2025-06-09 06:12] LABS: Basophils # (Auto) 0.0 Thou/mm3 (0.0-0.2); Basophils % (Auto) 1 % (0-2.5); Eosinophils # (Auto) 0.1 Thou/mm3 (0.0-0.5); Eosinophils % (Auto) 3 % (0-10); Hematocrit 36.8 % (41.0-53.0); Hemoglobin 12.4 g/dL (13.5-16.0); Immature Granulocytes Auto 0.02 Thou/mm3 (0.00-0.00); Lymphocytes # (Auto) 1.6 Thou/mm3 (1.0-4.8); Lymphocytes % (Auto) 29 % (10-50); Mean Corpuscular HGB Conc 33.7 g/dl (31.0-37.0); Mean Corpuscular Hemoglobin 28.6 pg (25.0-35.0); Mean Corpuscular Volume 85 fL (80-100); Monocytes # (Auto) 0.6 Thou/mm3 (0.0-0.8); Monocytes % (Auto) 11 % (0-12); Neutrophils # (Auto) 3.1 Thou/mm3 (1.8-7.7); Neutrophils % (Auto) 57 % (37-80); Nucleated Red Blood Cell # 0.00 Thou/mm3 (0.00-0.00); Nucleated Red Blood Cell % 0 /100 WBC (0); Platelet Count 211 Thou/mm3 (140-440); RDW Standard Deviation 47.6 fL (35.1-43.9); Red Blood Count 4.33 Miln/mm3 (4.50-5.90); White Blood Count 5.4 Thou/mm3 (3.8-10.6)
[2025-06-09 06:45] LABS: Alanine Aminotransferase 173 U/L (10-49); Albumin, Serum 4.2 gm/dL (3.5-5.0); Albumin/Globulin Ratio 1.8 (1.2-2.2); Alkaline Phosphatase 48 U/L (46-116); Anion Gap 10 (7-16); Aspartate Amino Transferase 148 U/L (0-34); BUN/Creatinine Ratio 13 Ratio (12-20); Bilirubin,Total 1.0 mg/dL (0.3-1.2); Blood Urea Nitrogen 12 mg/dL (9-23); Calcium 8.1 mg/dL (8.3-10.6); Calcium (Corrected) 8.1 mg/dL (8.5-10.1); Carbon Dioxide 27.8 mMol/L (20.0-31.0); Chloride 102 mMol/L (98-107); Creatinine (Component) 0.9 mg/dL (0.6-1.3); Estimated Creatinine Clearance 123.6 mL/min (>60); Globulin 2.4 gm/dL (2.3-3.5); Glucose 93 mg/dL (74-106); Magnesium 1.9 mg/dL (1.6-2.6); Osmolality,Calculated 279 (275-295); Phosphorous 1.6 mg/dL (2.4-5.1); Potassium 3.7 mMol/L (3.4-5.1); Sodium 140 mMol/L (136-145); Total Protein 6.6 gm/dL (5.7-8.2); eGFR > 60 See Note
[2025-06-09] MEDS: SODIUM CHLORIDE 0.9% 1000 ML 1,000 ML 80 ML IV ×2 (10:49→20:35)
--- NOTE | 2025-06-09 15:51 | ESPR_ITS ---
<Statement entered by Angelito Galindo MD - 06/10/25 09:02> Note reviewed and agree with care plan as documented. Please refer to the note below for further details. Plan discussed with attending physician Angelito Galindo MD PGY-2 Internal Medicine Documentation for date of: 06/09/25 Subjective Subjective Interval history: In a good mood this morning, Mr. Anthony is not complaining of nausea/vomiting. Awaiting EGD by Dr. Chelly Gupta. Exam Vital Signs Temp Pulse Resp BP Pulse Ox O2 Del Method 97.1 F 67 18 129/87 H 96 Room Air 06/09/25 12:00 06/09/25 12:00 06/09/25 12:00 06/09/25 12:00 06/09/25 12:00 06/09/25 12:00 Narrative Exam General: alert and oriented to self/place/year, no acute distress, able to speak full sentences HEENT: NC/AT, mucous membranes moist, bilateral sclera anicteric Cardiovascular: regular rate and rhythm, S1/S2 present, no murmurs appreciated Pulmonary: clear to auscultation bilaterally, no rales/rhonchi/wheezes Abdominal: soft, nontender, present bowel sounds Musculoskeletal: no peripheral edema Skin: Warm, well-perfused Objective Labs 06/10/25 04:58 06/09/25 05:27 Labs: Laboratory Results - last 24 hr 06/09/25 05:27 WBC 5.4 RBC 4.33 L Hgb 12.4 L Hct 36.8 L MCV 85 MCH 28.6 MCHC 33.7 RDW Std Deviation 47.6 H Plt Count 211 D Neut % (Auto) 57 Lymph % (Auto) 29 [place] % (Auto) 11 Eos % (Auto) 3 Baso % (Auto) 1 Neut # (Auto) 3.1 Lymph # (Auto) 1.6 [place] # (Auto) 0.6 Eos # (Auto) 0.1 Baso # (Auto) 0.0 Immature Gran # (Auto) 0.02 H Absolute Nucleated RBC 0.00 Immature Gran % 0 Nucleated RBC % 0 Sodium 140 Potassium 3.7 D Chloride 102 Carbon Dioxide 27.8 Anion Gap 10 BUN 12 Creatinine 0.9 Estim Creat Clear Calc 123.6 eGFR > 60 BUN/Creatinine Ratio 13 Glucose 93 Calculated Osmolality 279 Calcium 8.1 L Corrected Calcium 8.1 L Phosphorus 1.6 L Magnesium 1.9 Total Bilirubin 1.0 D AST 148 H ALT 173 H Alkaline Phosphatase 48 Total Protein 6.6 Albumin 4.2 Globulin 2.4 Albumin/Globulin Ratio 1.8 Quality Measures Quality Measures none Assessment & Plan Assessment Current Active Medications: Generic Name Dose Route Start Last Admin Trade Name Freq PRN Reason Stop Dose Admin Acetaminophen 650 mg 06/07/25 18:32 06/08/25 09:32 Acetaminophen 325 Mg Tablet PO 07/07/25 18:31 650 mg Q6H PRN Administration PAIN OR FEVER > 100.4 Protocol Hydrocodone Bitart/Acetaminophen 1 tab 06/08/25 10:32 06/09/25 04:45 Hydrocodone/Apap 5/325 Tablet PO 06/13/25 10:31 1 tab Q6HR PRN Administration PAIN 4-10 Sodium Chloride 1,000 mls @ 80 mls/hr 06/07/25 18:45 06/09/25 10:49 Ns IV 07/07/25 18:44 80 mls/hr .[id number] GUZMAN Administration Metoclopramide HCl 10 mg 06/07/25 18:32 06/07/25 20:05 Metoclopramide 5 Mg Tablet PO 07/07/25 18:31 10 mg Q6H PRN Administration NAUSEA OR VOMITING Pantoprazole Sodium 40 mg 06/08/25 21:00 06/09/25 10:49 Pantoprazole Inj 40 Mg Vial IVP 07/08/25 20:59 40 mg BID GUZMAN Administration Plan Gaurav Anthony is a 39-year-old male with a past medical history of hypertension who is admitted for intractable nausea/vomiting with electrolyte derangements. #GI bleed #Intractable nausea/vomiting(resolving) #Contraction alkalosis (resolve) #Hypochloremia(resolving) DDX: Gastroenteritis versus biliary dyskinesia versus dyspepsia versus gastritis vs toxins Presents with 3 days of intractable nausea and vomiting. Initially couldn't hold down solids or liquids, now able to to Pulse of 109. Labs show likely contraction alkalosis with bicarb of 32 and hypochloremia of 87. Significant alcohol use in the past, now drinks occasionally. Patient reports 1 episode of coffee-ground emesis hemoglobin dropped from 16 to 13.4 overnight urinalysis showed 7 RBCs, raising concern for a possible GI bleed. Plan ?EGD today - Protonix 40 mg IV twice daily ? Reglan as needed every 6 hours ? NS at 80 cc/h #Electrolyte derangements #Hypokalemia (resolving) #Hypomagnesemia (resolve) #Hypercalcemia (resolve) ? Follow-up labs and replete as needed ? Monitor for signs of refeeding syndrome ? AM phosphorus #Transaminitis (resolving) #Hyperbilirubinemia(resolving) #Hepatosteatosis Acute hepatitis screening was negative. However, given the patient's early symptoms, there is still concern that hepatitis could be contributing to the right upper quadrant pain, elevated liver enzymes, and GI symptoms. 06/09 slight uptrend today AST/ALT 148/174; to continue monitoring -CT A/P showing severe and diffuse fatty infiltration throughout liver. Gallbladder ultrasound unremarkable. -Hepatitis panel negative ? Continue to monitor #Sinus tachycardia (resolve) Hospital management: Lines: peripheral IV Diet: regular GI prophylaxis: PPI DVT prophylaxis: SCD Disposition: EGD planned for tomorrow CODE STATUS: Full code Patient seen and discussed with Dr. Avtar Vásquez and senior resident Dr. Angelito Galindo. Felice Cottrell MD PGY-1 Attending Provider Attestation/Addendum I have examined the patient, reviewed labs and imaging findings, discussed the case with the resident(s), and reviewed entered orders. I agree with the plan of care as outlined in this note. Dr. Fahad MD
--- NOTE | 2025-06-09 16:47 | SUR.PHASEI ---
1644 patient is awake, alert, breathing unlabored, s/p EGD under IV sedation, report received from Mansoor LOPEZ.
--- NOTE | 2025-06-09 17:14 | SUR.PHASEI ---
1714 patient is awake, alert, breathing unlabored, report given to Keeley LOPEZ, patient transferred back to room 372
[2025-06-09] MEDS: METOCLOPRAMIDE INJ 5 MG/ML VIAL 2 ML IVP ×2 (18:25→23:18)
[2025-06-10] VITALS: BP 126/77; PULSE 68; RESP 18; TEMP 36.2; O2SAT 97
[2025-06-10 04:00] VITALS: BP 115/80; PULSE 69; RESP 18; TEMP 36.5; O2SAT 98
[2025-06-10] MEDS: METOCLOPRAMIDE INJ 5 MG/ML VIAL 2 ML IVP ×2 (05:40→11:43)
[2025-06-10 06:03] LABS: Basophils # (Auto) 0.0 Thou/mm3 (0.0-0.2); Basophils % (Auto) 0 % (0-2.5); Eosinophils # (Auto) 0.2 Thou/mm3 (0.0-0.5); Eosinophils % (Auto) 3 % (0-10); Hematocrit 34.3 % (41.0-53.0); Hemoglobin 11.7 g/dL (13.5-16.0); Immature Granulocytes Auto 0.02 Thou/mm3 (0.00-0.00); Lymphocytes # (Auto) 1.3 Thou/mm3 (1.0-4.8); Lymphocytes % (Auto) 28 % (10-50); Mean Corpuscular HGB Conc 34.1 g/dl (31.0-37.0); Mean Corpuscular Hemoglobin 29.2 pg (25.0-35.0); Mean Corpuscular Volume 86 fL (80-100); Monocytes # (Auto) 0.4 Thou/mm3 (0.0-0.8); Monocytes % (Auto) 9 % (0-12); Neutrophils # (Auto) 2.8 Thou/mm3 (1.8-7.7); Neutrophils % (Auto) 59 % (37-80); Nucleated Red Blood Cell # 0.00 Thou/mm3 (0.00-0.00); Nucleated Red Blood Cell % 0 /100 WBC (0); Platelet Count 195 Thou/mm3 (140-440); RDW Standard Deviation 48.5 fL (35.1-43.9); Red Blood Count 4.01 Miln/mm3 (4.50-5.90); White Blood Count 4.8 Thou/mm3 (3.8-10.6)
[2025-06-10 07:57] LABS: Alanine Aminotransferase 296 U/L (10-49); Albumin, Serum 3.9 gm/dL (3.5-5.0); Albumin/Globulin Ratio 1.7 (1.2-2.2); Alkaline Phosphatase 48 U/L (46-116); Anion Gap 13 (7-16); Aspartate Amino Transferase 301 U/L (0-34); BUN/Creatinine Ratio 10 Ratio (12-20); Bilirubin,Total 0.6 mg/dL (0.3-1.2); Blood Urea Nitrogen 8 mg/dL (9-23); Calcium 7.9 mg/dL (8.3-10.6); Calcium (Corrected) 8.0 mg/dL (8.5-10.1); Carbon Dioxide 22.5 mMol/L (20.0-31.0); Chloride 107 mMol/L (98-107); Creatinine (Component) 0.8 mg/dL (0.6-1.3); Estimated Creatinine Clearance 139.0 mL/min (>60); Globulin 2.3 gm/dL (2.3-3.5); Glucose 89 mg/dL (74-106); Magnesium 1.8 mg/dL (1.6-2.6); Osmolality,Calculated 280 (275-295); Phosphorous 1.8 mg/dL (2.4-5.1); Potassium 3.7 mMol/L (3.4-5.1); Sodium 142 mMol/L (136-145); Total Protein 6.2 gm/dL (5.7-8.2); eGFR > 60 See Note
[2025-06-10 08:00] VITALS: BP 123/80; PULSE 67; RESP 17; TEMP 36.3; O2SAT 99
[2025-06-10] MEDS: POT PHOS 15 mMol in NS 250 ML 15 MMOL/250 ML BAG 62.5 MMOL IV (09:41)
[2025-06-10] MEDS: HYDROcodone/APAP 5/325 TABLET 1 TAB PO (09:41)
[2025-06-10 12:00] VITALS: BP 118/76; PULSE 87; RESP 16; TEMP 36.3; O2SAT 97
--- NOTE | 2025-06-10 13:14 | ESDS_ITS ---
<Statement entered by Angelito Galindo MD - 06/10/25 13:22> Note reviewed and agree with care plan as documented. Please refer to the note below for further details. Plan discussed with attending physician Dr. Fahad Galindo MD PGY-2 Internal Medicine Planned Discharge Date 06/10/25 DS: Providers Provider Date of admission: 06/07/25 18:22 Primary care physician: Physician No Primary/Family Admitting Provider: Avtar Vásquez MD Attending Provider on Admission: Avtar Vásquez MD Consults: 06/07/25 18:36 Consult to Gastroenterology Routine Comment: Intractable N/V to solids and liquids x4 days Consulting Provider: Chelly Gupta 06/07/25 21:49 Referral Registered Dietitian Routine Comment: Referral Respiratory Therapy Routine Comment: Attending Provider on DC: Avtar Vásquez MD Discharging Provider: Avtar Vásquez MD Anticipated date of discharge: 06/10/25 DS: Diagnosis Problem List Completed Was Problem List Reviewed/Reconciled?: Yes Hospital Course Hospital Course Hospital course: Summary Gaurav Anthony is a 39-year-old male with a past medical history of hypertension who presents to [facility] on 06/07/25 with intractable nausea and vomiting for 3 days ago, acute onset in nature, are nonbloody, and occurs when he eats and when he does not eat and cannot hold down solids or liquids. Associated abdominal pain and 4 episodes of nonbloody diarrhe. Does not recall eating in any restaurants or buffets and no sick contact. ED vitals were stable. CHEM panel K of 3.1, chloride 87, bicarb 32, AG 17 calcium 12, magnesium 1.1 T. bili is 1 point, AST/ALT 170/228, negative troponins. U tox positive for opiates. CT A/P showing severe, diffuse fatty infiltration throughout liver but otherwise unremarkable. Gallbladder ultrasound unremarkable. EKG showing sinus tachycardia. Repeat CBC noted the patient H&H downtrending and urinalysis showed 7 RBCs. GI consulted for intractable nausea and vomiting. Upon reevaluation patient reports continued intermittent sharp right upper quadrant pain and epigastric pain that not associated with eating. Patient also reported an episode of coffee-ground emesis and recurrent use for hzac-pek-woqwnch ibuprofen. Due ALT/AST and ruq abd pain screen for Hepatitis panel were ordered and were negative. EGD was done 06/09/25 and showed esophageal ulcers, gastritis, 2 cm hiatal hernia. Patient was advised to abstain from spicy food, OTC NSAIDS and encourage peptic ulcer diet like bland meals. Throughout the hospital course patient other problems were managed and his condition improved remarkably with progression of hospital course. Further plan to discharge since he is hemodynamically stable to be discharged home to self care with the following instructions. Discharge recommendation: ? You've been prescribed Tylenol 500 mg for pain and metoclopramide/Reglan for nausea/vomiting ? Continue taking all other home medications as prescribed - Follow up with your PCP regarding the results of the biopsy that was taken during this hospitalization. - We found thickening of the urinary bladder and blood in the urine, please follow up with your PCP to rule out malignancy - Wear your protective equipment during handling chemicals ? Follow-up with PCP within 1-2 weeks of discharge ? Follow-up with Dr. Gupta within 1-2 weeks of discharge ? If you do not have a PCP, you can follow-up at the [facility] (you can call [phone] to make an appointment) ? Return to ED if symptoms worsen or recur Hospital Diagnoses: #GI bleed #Esophageal ulcer, gastritis, hiatal hernia #Intractable nausea/vomiting(resolve) #Contraction alkalosis (resolve) #Hypochloremia(resolve) #Electrolyte derangements #Hypokalemia (resolve) #Hypomagnesemia (resolve) #Hypercalcemia (resolve) #Transaminitis (resolving) #Hyperbilirubinemia(resolve) #Hepatosteatosis #Sinus tachycardia (resolve) Patient assessed under supervision of attending physician and senior resident Dr. Galindo PGY-2 Clau Walden MD PGY-1, Internal Medicine Please note: this document was transcribed using voice recognition technology; minor inaccuracies may be present. Time Spent with Patient Time attestation: Total time spent providing and/or coordinating discharge services: Time spent: Greater than 30 minutes Exam Vital Signs Temp Pulse Resp BP Pulse Ox O2 Del Method O2 Flow Rate 97.4 F 87 16 118/76 97 Room Air 3 06/10/25 12:00 06/10/25 12:06/10/25 12:06/10/25 12:06/10/25 12:06/10/25 12:00 06/09/25 16:35 Narrative Exam General: Alert, no acute distress.Conversational and non-toxic appearing. Skin: Warm, dry, intact. No rash or ecchymoses. Head: Normocephalic, atraumatic. Eye: Normal conjunctiva, PERRL. Throat: Oral mucosa moist. No obvious lesions in oropharynx. Cardiovascular: Regular rate and rhythm, no murmur, +S1/S2. Respiratory: Lungs are clear to auscultation, respirations unlabored, no crackles, no wheezing. Gastrointestinal: Soft, nontender, non-distended. No guarding or rebound tenderness. Extremities: No edema, no cyanosis, no clubbing. Neuro: Alert and oriented x3.No focal deficits observed. Conversant, moving all extremities. No overt cerebellar signs/incoordination. Psychiatric: Cooperative, appropriate affect Discharge Plan Plan Patient Disposition: HOME (Self Care) Patient condition on transfer: Stable Care Plan Goals: ? You've been prescribed Tylenol 500 mg for pain and metoclopramide/Reglan for nausea/vomiting ? Continue taking all other home medications as prescribed - Follow up with your PCP regarding the results of the biopsy that was taken dur ing this hospitalization. - We found thickening of the urinary bladder and blood in the urine, please follow up with your PCP to rule out malignancy - Wear your protective equipment during handling chemicals ? Follow-up with PCP within 1-2 weeks of discharge ? Follow-up with Dr. Gupta within 1-2 weeks of discharge ? If you do not have a PCP, you can follow-up at the [facility] (you can call [phone] to make an appointment) ? Return to ED if symptoms worsen or recur Prescriptions/Referrals Prescriptions/Med Rec: New metoclopramide HCl [Reglan] 10 mg tablet 10 mg PO Q6H PRN (Reason: nausea and vomiting) Qty: 10 0RF acetaminophen 500 mg capsule 500 mg PO Q6H PRN (Reason: fever or pain) Qty: 14 0RF pantoprazole [Protonix] [address] for susp in packet 40 mg PO QDAY 30 Days Qty: 30 0RF Continued sennosides [Senna Lax] 8.6 mg Tablet 17.2 mg PO QDAY PRN (Reason: Constipation) Qty: 14 0RF losartan potassium 50 mg tablet 50 mg PO QDAY Referrals: No Primary/Family,Physician [Primary Care Provider] Patient/Caregiver Discharge Instructions Education Materials: Upper GI Endoscopy, Treating Gastritis, Understanding Gastritis, Anatomy of the Digestive System, ED Diet for Vomiting or ..., ED PEPTIC ULCER vs GASTRITIS, ED Vomiting (Adult) Print Language: Italian Stand Alone Forms: Tamika Award Info., Patient Portal Info Letter, Work/Release Restrictions Discharge Order Discharge Orders: Discharge (Routine); Ordered 06/10/25 Ordered By: Jose David Foley Quality Discharge Quality Measures VTE prophylaxis MD Attestestation MD Attestation I have examined the patient, reviewed labs and imaging findings, discussed the case with the resident(s), and reviewed entered orders. I agree with the plan of care as outlined in this note. Time Spent: [address] Fahad MD
--- NOTE | 2025-06-10 18:19 | PD.IMPROG ---
Documentation for date of: 06/10/25 Subjective Subjective Interval history: Late entry for the nose Hemoglobin hematocrit 11.7 and 34.3 Upper endoscopy showed mid and distal esophageal ulcers Exam Vital Signs Temp Pulse Resp BP Pulse Ox O2 Del Method O2 Flow Rate 97.4 F 87 16 118/76 97 Room Air 3 06/10/25 12:00 06/10/25 12:00 06/10/25 12:00 06/10/25 12:00 06/10/25 12:00 06/10/25 12:00 06/09/25 16:35 Objective Labs 06/10/25 04:58 06/10/25 04:58 Labs: Laboratory Results - last 24 hr 06/10/25 04:58 WBC 4.8 RBC 4.01 L Hgb 11.7 L Hct 34.3 L MCV 86 MCH 29.2 MCHC 34.1 RDW Std Deviation 48.5 H Plt Count 195 Neut % (Auto) 59 Lymph % (Auto) 28 [place] % (Auto) 9 Eos % (Auto) 3 Baso % (Auto) 0 Neut # (Auto) 2.8 Lymph # (Auto) 1.3 [place] # (Auto) 0.4 Eos # (Auto) 0.2 Baso # (Auto) 0.0 Immature Gran # (Auto) 0.02 H Absolute Nucleated RBC 0.00 Immature Gran % 0 Nucleated RBC % 0 Sodium 142 Potassium 3.7 Chloride 107 Carbon Dioxide 22.5 Anion Gap 13 BUN 8 L Creatinine 0.8 Estim Creat Clear Calc 139.0 eGFR > 60 BUN/Creatinine Ratio 10 L Glucose 89 Calculated Osmolality 280 Calcium 7.9 L Corrected Calcium 8.0 L Phosphorus 1.8 L Magnesium 1.8 Total Bilirubin 0.6 AST 301 H ALT 296 H Alkaline Phosphatase 48 Total Protein 6.2 Albumin 3.9 Globulin 2.3 Albumin/Globulin Ratio 1.7 Impressions Impression: Multiple mid and distal esophageal ulcers Okay to discharge patient home on a PPI Assessment & Plan Time Spent With Patient Time: Total time spent is greater than 50% in coordination of care (as documented) at patient's floor/unit and/or counseling patient:
[2025-06-10 21:15] LABS: Hepatitis A Antibody IgM Non Reactive (Non React); Hepatitis B Core Antibody IgM Non Reactive (Non React); Hepatitis B Surface Antigen Non Reactive (Non React); Hepatitis C Antibody Non Reactive (Non React)
== END 2025-06-10 15:25 | disposition home or self-care (01) ==
LOC: SERX 17:28 → SERHOLD 06-08 06:23 → S3SX 06-08 06:23
PROVIDERS: Nurse Practitioner Primary Care; Specialist; Student in an Organized Health Care Education/Training Program; Admitting Provider Student in an Organized Health Care Education/Training Program; Emergency Provider Family Medicine; Visit Provider Student in an Organized Health Care Education/Training Program
PROC: (CPT 43239; principal; 2025-06-09 17:15)
DX: K22.11 Ulcer of esophagus with bleeding (principal); E87.8 Other disorders of electrolyte and fluid balance, not elsewhere classified; E87.3 Alkalosis; E87.6 Hypokalemia; E83.42 Hypomagnesemia; K76.0 Fatty (change of) liver, not elsewhere classified; R00.0 Tachycardia, unspecified; E83.52 Hypercalcemia; I10 Essential (primary) hypertension; K29.51 Unspecified chronic gastritis with bleeding; K44.9 Diaphragmatic hernia without obstruction or gangrene
CPT/HCPCS: 43239; 36415; 71046; 74176; 76705; 80053; 80061; 80074; 80307; 80320; 81001; 83690; 83735; 83880; 84100; 84443; 84484; 85025; 85610; 85730; 93005; 96361; 96374; 96375; 96376; 99283; A4649; G0378; J1200; J2250; J2470; J2765; J3010; J3475; J3480; J7030; J7999; A9270; G0480